=== PATIENT | male | born 1960 | race Caucasian/White ===

== ENCOUNTER 2021-07-01 11:22 | Outpatient (REF) | payer OTHER, SELFPAY ==
[2021-07-01 12:24] LABS: MANUAL DIFF FLAG NO
[2021-07-01 12:34] LABS: Basophils Percent Auto 0.3 % (0-2); Eosinophils Percent Auto 0.5 % (0-4); Hematocrit 42.5 % (42-52); Hemoglobin 14.4 g/dl (14.0-18.0); Imm Gran Abs Auto 0.03 X10*3/uL (0.00-0.03); Imm Gran Pct Auto 0.4 % (0.0-0.4); Lymphocytes Absolute Auto 1.3 X10*3/uL (1.2-4.9); Lymphocytes Percent Auto 17.2 % (20-40); Mean Corpuscular HGB Conc 33.9 g/dl (31.0-36.0); Mean Corpuscular Hemoglobin 29.6 pg (27.0-33.0); Mean Corpuscular Volume 87.3 fL (80-98); Mean Platelet Volume 10.6 fL (9.4-12.4); Monocytes Absolute Auto 0.5 X10*3/uL (0.1-1.2); Monocytes Percent Auto 6.5 % (2-11); Neutrophils Absolute Auto 5.6 X10*3/uL (2.0-8.3); Neutrophils Percent Auto 75.1 % (45-73); Platelet Count 236 X10*3/uL (160-400); Red Blood Count 4.87 X10*6/uL (4.60-5.80); Red Cell Distribution Width 12.8 % (11.0-16.0); White Blood Count 7.4 X10*3/uL (4.8-10.8)
[2021-07-01 12:44] LABS: Alanine Aminotransferase 12 U/L (0-40); Albumin Level 4.3 g/dL (3.5-5.0); Alkaline Phosphatase 74 U/L (39-117); Anion Gap 13 (12-20); Aspartate Amino Transferase 13 U/L (5-37); Bilirubin Total 0.7 mg/dL (0.0-1.0); Blood Urea Nitrogen 17 mg/dL (9-16); Calcium 9.6 mg/dL (8.4-10.2); Carbon Dioxide 25 mmol/L (22-29); Chloride 105 mmol/L (96-108); Cholesterol 179 mg/dL; Estimated Glomerular Filt Rate > 60; Glucose Random 105 mg/dL (60-115); HDL Cholesterol 59 mg/dL; LDL Cholesterol Calculated 110 mg/dl; Sodium 138 mmol/L (135-145); Total Protein 6.7 g/dL (6.5-8.0); Triglycerides 53 mg/dL
[2021-07-01 13:07] LABS: Free T4 (Free Thyroxine) 1.13 ng/dL (0.71-1.85); Thyroid Stimulating Hormone 1.35 uIU/mL (0.32-4.0)
[2021-07-01 13:16] LABS: Folate > 20.0 ng/mL (> or = 4.0); Vitamin B12 880 pg/mL (200-900)
== END 2021-07-01 11:23 | disposition home or self-care (01) ==
LOC: HO.LAB 11:22
PROVIDERS: PCP Internal Medicine; Visit Provider Internal Medicine
DX: E78.00 Pure hypercholesterolemia, unspecified (principal); I10 Essential (primary) hypertension
CPT/HCPCS: 36415; 80053; 80061; 82607; 82746; 84439; 84443; 85025

== ENCOUNTER 2021-07-07 12:17 | Outpatient (REF) | payer OTHER, SELFPAY ==
[2021-07-07 14:19] LABS: Prostate Specific Antigen Scr 0.52 ng/mL (<0.05-4.0)
== END 2021-07-07 12:18 | disposition home or self-care (01) ==
LOC: HO.LAB 12:17
PROVIDERS: PCP Internal Medicine; Visit Provider Internal Medicine
DX: I10 Essential (primary) hypertension (principal)
CPT/HCPCS: 36415; 84153

== ENCOUNTER 2022-07-08 10:59 | Outpatient (REF) | payer OTHER, SELFPAY ==
[2022-07-08 11:13] LABS: MANUAL DIFF FLAG NO
[2022-07-08 11:55] LABS: Appearance Urine Clear; Color Urine Yellow; Glucose Urine UA Negative (Negative); Leukocyte Esterase Urine Negative (Negative); Nitrite Urine Negative (Negative); PH 5.5 (5.0-9.0); Specific Gravity - Urine 1.025 (1.005-1.025); Urine Blood Negative (Negative); Urine Ketones Negative (Negative); Urine Protein Negative (Neg-Trace)
[2022-07-08 11:58] LABS: Basophils Percent Auto 0.4 % (0-2); Eosinophils Absolute Auto 0.1 X10*3/uL (0.0-0.4); Eosinophils Percent Auto 1.2 % (0-4); Hematocrit 41.9 % (42.0-52.0); Hemoglobin 13.8 g/dl (14.0-18.0); Imm Gran Abs Auto 0.03 X10*3/uL (0.00-0.03); Imm Gran Pct Auto 0.4 % (0.0-0.4); Lymphocytes Absolute Auto 1.6 X10*3/uL (1.2-4.9); Lymphocytes Percent Auto 21.3 % (20-40); Mean Corpuscular HGB Conc 32.9 g/dl (31.0-36.0); Mean Corpuscular Hemoglobin 29.1 pg (27.0-33.0); Mean Corpuscular Volume 88.4 fL (80.0-98.0); Mean Platelet Volume 10.7 fL (9.4-12.4); Monocytes Absolute Auto 0.6 X10*3/uL (0.1-1.2); Monocytes Percent Auto 7.4 % (2-11); Neutrophils Absolute Auto 5.3 x10*3/uL (2.0-8.3); Neutrophils Percent Auto 69.3 % (45-73); Platelet Count 229 X10*3/uL (160-400); Red Blood Count 4.74 X10*6/uL (4.60-5.80); Red Cell Distribution Width 13.2 % (11.0-16.0); White Blood Count 7.6 X10*3/uL (4.8-10.8)
[2022-07-08 11:59] LABS: Bacteria Urine None Seen (None Seen); Hyaline Casts Urine 0-2 /LPF (0-2); RBC Urine 0-2 /HPF (0-2); Squamous Epithelial Cell Urine 0-2 /HPF (0-2); WBC Urine 0-5 /HPF (0-5)
[2022-07-08 12:03] LABS: Estimated Average Glucose 105 mg/dL; Hemoglobin A1c % 5.3 %
[2022-07-08 12:25] LABS: Alanine Aminotransferase 13 U/L (0-40); Alkaline Phosphatase 68 U/L (39-117); Anion Gap 13 (12-20); Aspartate Amino Transferase 12 U/L (5-37); Bilirubin Total 1.2 mg/dL (0.0-1.0); Blood Urea Nitrogen 19 mg/dL (9-16); Calcium 9.1 mg/dL (8.4-10.2); Carbon Dioxide 26 mmol/L (22-29); Chloride 106 mmol/L (96-108); Cholesterol 177 mg/dL; Estimated Glomerular Filt Rate > 60; Glucose Random 94 mg/dL (60-115); HDL Cholesterol 56 mg/dL; LDL Cholesterol Calculated 108 mg/dl; Potassium 4.6 mmol/L (3.3-5.1); Sodium 140 mmol/L (135-145); Total Protein 6.5 g/dL (6.5-8.0); Triglycerides 66 mg/dL
[2022-07-08 13:06] LABS: Folate > 20.0 ng/mL (> or = 4.0); Free T4 (Free Thyroxine) 1.09 ng/dL (0.71-1.85); Prostate Specific Antigen Scr 0.46 ng/mL (<0.05-4.0); Vitamin B12 723 pg/mL (200-900)
[2022-07-08 13:42] LABS: Thyroid Stimulating Hormone 1.35 uIU/mL (0.32-4.0)
== END 2022-07-08 11:00 | disposition home or self-care (01) ==
LOC: HO.LAB 10:59
PROVIDERS: PCP Internal Medicine; Visit Provider Internal Medicine
DX: E78.00 Pure hypercholesterolemia, unspecified (principal); I10 Essential (primary) hypertension; R73.02 Impaired glucose tolerance (oral)
CPT/HCPCS: 36415; 80053; 80061; 81001; 82607; 82746; 83036; 84153; 84439; 84443; 85025

== ENCOUNTER 2023-02-24 11:53 | Outpatient (REF) | payer OTHER, SELFPAY ==
[2023-02-24 12:08] LABS: MANUAL DIFF FLAG NO
[2023-02-24 12:33] LABS: Basophils Percent Auto 0.5 % (0-2); Eosinophils Absolute Auto 0.2 X10*3/uL (0.0-0.4); Eosinophils Percent Auto 2.9 % (0-4); Hemoglobin 13.8 g/dl (14.0-18.0); Imm Gran Abs Auto 0.02 X10*3/uL (0.00-0.03); Imm Gran Pct Auto 0.3 % (0.0-0.4); Lymphocytes Absolute Auto 1.6 X10*3/uL (1.2-4.9); Lymphocytes Percent Auto 21.9 % (20-40); Mean Corpuscular HGB Conc 32.9 g/dl (31.0-36.0); Mean Corpuscular Hemoglobin 29.2 pg (27.0-33.0); Mean Corpuscular Volume 88.8 fL (80.0-98.0); Mean Platelet Volume 10.8 fL (9.4-12.4); Monocytes Absolute Auto 0.6 X10*3/uL (0.1-1.2); Monocytes Percent Auto 7.9 % (2-11); Neutrophils Absolute Auto 4.9 x10*3/uL (2.0-8.3); Neutrophils Percent Auto 66.5 % (45-73); Platelet Count 219 X10*3/uL (160-400); Red Blood Count 4.73 X10*6/uL (4.60-5.80); Red Cell Distribution Width 13.2 % (11.0-16.0); White Blood Count 7.3 X10*3/uL (4.8-10.8)
[2023-02-24 13:28] LABS: Estimated Average Glucose 105 mg/dL; Hemoglobin A1c % 5.3 %
[2023-02-24 14:00] LABS: Alanine Aminotransferase 8 U/L (0-40); Alkaline Phosphatase 77 U/L (39-117); Anion Gap 9 (12-20); Aspartate Amino Transferase 11 U/L (5-37); Bilirubin Total 1.2 mg/dL (0.0-1.0); Blood Urea Nitrogen 17 mg/dL (9-16); Calcium 9.2 mg/dL (8.4-10.2); Carbon Dioxide 29 mmol/L (22-29); Chloride 108 mmol/L (96-108); Cholesterol 161 mg/dL; Estimated Glomerular Filt Rate > 60; Glucose Fasting 97 mg/dL (60-99); HDL Cholesterol 55 mg/dL; LDL Cholesterol Calculated 92 mg/dl; Potassium 4.4 mmol/L (3.3-5.1); Prostate Specific Antigen 0.55 ng/mL (<0.05-4.0); Sodium 142 mmol/L (135-145); Total Protein 6.3 g/dL (6.5-8.0); Triglycerides 71 mg/dL; Vitamin B12 793 pg/mL (200-900); Vitamin D 25-OH Total 4.3 ng/mL (>30)
== END 2023-02-24 11:54 | disposition home or self-care (01) ==
LOC: HO.LAB 11:53
PROVIDERS: PCP Internal Medicine; Visit Provider Nurse Practitioner Family
DX: Z00.00 Encounter for general adult medical examination without abnormal findings (principal); E66.9 Obesity, unspecified; R73.02 Impaired glucose tolerance (oral); I10 Essential (primary) hypertension; Z13.220 Encounter for screening for lipoid disorders; Z12.5 Encounter for screening for malignant neoplasm of prostate
CPT/HCPCS: 36415; 80053; 80061; 82306; 82607; 82746; 83036; 84153; 84443; 85025

== ENCOUNTER 2023-08-31 10:29 | Outpatient (AMB) | payer OTHER, SELFPAY ==
[2023-08-31 10:32] VITALS: BP 122/82; PULSE 75; O2SAT 96; BMI 36.2
--- NOTE | 2023-08-31 10:32 | A.OFFPC_ITS ---
Vital Signs 08/31/23 10:32 Height 6 ft Weight 267 lb BMI 36.2 BP 122/82 Blood Pressure Location Lt brachial Position Sitting Pulse 75 Pulse Source Pulse Oximeter Pulse Oximetry (%) 96 Oxygen Delivery Method Room Air Intake Visit Reasons: 6 month f/u Allergies No Known Allergies [No Known Allergies*] Allergy (Verified 08/31/23 10:33) Medication List - Last Reconciled 08/31/23 by Sunita Barker MD aspirin (Adult Aspirin Regimen) 81 mg PO DAILY cholecalciferol (vitamin D3) 50 mcg PO DAILY cyanocobalamin (vitamin B-12) 1,000 mcg PO DAILY enalapril maleate 10 mg PO DAILY folic acid 0.4 mg PO DAILY loperamide (Anti-Diarrheal (loperamide)) 2 mg PO Q6H PRN Tobacco use date assessed: 02/24/23 Fall risk assessment: No Falls in past year Last assessed Fall Risk: 08/31/23 Dental Screening Dental Screen Date: 08/31/23 Did you have a dental visit in the last 12 months?: Yes Did you have a dental problem in the last 6 months where you did not have access to dental care?: No Was dental information given to patient?: Patient has dentist HPI 6 month f/u HPI Details 62-year-old obese male with a history of impaired glucose tolerance hypertension peripheral vascular disease last seen in June 2022 having left shoulder pain. Patient's colonoscopy is up-to-date patient did have a physical exam done by the nurse practitioner in February 2023 [facility]LY [facility], [facility] Medical History (Updated 08/31/23 @ 11:11 by Sunita Barker MD) Screening for hyperlipidemia Screening for prostate cancer Cervical spinal stenosis Ganglioneuroma Superficial thrombophlebitis Peripheral vascular disease Osteoarthritis cervical spine Hypertension Obesity (BMI 30-39.9) Surgical History (Updated 02/24/23 @ 13:34 by CIARA Sears) History of colonoscopy Varicose veins of both lower extremities History of tonsillectomy Family History (Updated 08/31/23 @ 10:33 by Aimee Feliz CMA) Father Prostate cancer Basal cell carcinoma Social History Housing: House Alcohol intake: current Alcohol intake frequency: a few times a month Patient Tobacco Use Status: Never used Tobacco e-Cigarette/Vaping Use: Never Used Second Hand Smoke Exposure: No Current occupational status: employed Cognitive needs: No Hearing needs: No Vision needs: No Questionnaire PHQ-9 Over the last 2 weeks, how often have you been bothered by any of the following problems? 1. Little interest or pleasure in doing things: not at all 2. Feeling down, depressed, or hopeless: not at all 3. Trouble falling or staying asleep, or sleeping too much: not at all 4. Feeling tired or having little energy: not at all 5. Poor appetite or overeating: not at all 6. Feeling bad about yourself - or that you are a failure or have let yourself or your family down: not at all 7. Trouble concentrating on things, such as reading the newspaper or watching television: not at all 8. Moving or speaking so slowly that other people could have noticed. Or the opposite - being so fidgety or restless that you have been moving around a lot more than usual: not at all 9. Thoughts that you would be better off or of hurting yourself in some way: not at all Total score: 0 Depression Screening Interpretation: Negative Depression Screening Done: Yes 53911 - PHQ-9 Billing: Yes Source: Developed by Drs. Christos Lee, Magno Jin and colleagues, with an educational johanne from [employer]. Thrive Questionnaire Date Thrive assessed: 02/24/23 AUDIT C Alcohol Use Questionnaire (AUDIT-C) 1. How often do you have a drink containing alcohol?: Monthly or less 2. How many drinks containing alcohol do you have on a typical day when you are drinking?: 1 or 2 3. How often do you have six or more drinks on one occasion?: Never Total Score: 1 Score Reviewed/Action Taken: No MARYAM-7 AMB Questionnaire MARYAM-7 Date MARYAM - 7 assessed: 02/24/23 Source: Developed by Drs. Christos Lee, Magno Jin and colleagues, with an educational johanne from [employer]. Physical exam (Primary Care) Vital Signs: Last Vital Signs Pulse 75 08/31/23 10:32 BP 122/82 08/31/23 10:32 Pulse Ox 96 08/31/23 10:32 Oxygen Delivery Method Room Air 08/31/23 10:32 BMI result Body Mass Index 36.2 Tobacco/Smoking Status: Tobacco use Status Tobacco use date assessed 02/24/23 08/31/23 10:39 Patient Tobacco Use Status Never used Tobacco 08/31/23 10:39 e-Cigarette/Vaping Use Never Used 08/31/23 10:39 PHQ-9: PHQ-9 Score PHQ-9: Total score 0 08/31/23 10:39 Depression Screening Interpretation: Negative Thrive Assessment: Date of Thrive Assessment Date Thrive assessed 02/24/23 08/31/23 10:39 Const General: alert; No acute distress Eyes Conjunctivae: conjunctivae normal Resp Auscultation: clear to auscultation bilaterally Cardio Rate: regular rate Rhythm: regular rhythm GI Inspection: Yes normal to inspection Extrem Other: RLE swelling 1+ General: Yes normal to inspection and No edema Assessment and Plan Assessment & Plan (1) Mild anemia: Code(s): D64.9 - Anemia, unspecified Plan: Stable continue to monitor (2) Obesity (BMI 30-39.9): Code(s): E66.9 - Obesity, unspecified Plan: Diet and exercise (3) Hypertension: Code(s): I10 - Essential (primary) hypertension Qualifiers: Hypertension type: essential hypertension Qualified Code(s): I10 - Essential (primary) hypertension Plan: Continue with blood pressure medication. Decrease salt intake and exercise patient takes enalapril 10 mg once a day (4) Impaired glucose tolerance: Code(s): R73.02 - Impaired glucose tolerance (oral) Plan: Decrease the amount of carbohydrate intake, pasta, bread, rice and potatoes are all sugar and that is aside from all the sweet stuff, remember that fruits are good but they are Sweet also. Orders: Orders Reticulocyte Count Today D64.9 - Anemia, unspecified Prostate Specific Antigen Scr 6 Months I10 - Essential (primary) hypertension Thyroid Stimulating Hormone 6 Months I10 - Essential (primary) hypertension Free T4 (Free Thyroxine) 6 Months I10 - Essential (primary) hypertension Lipid Panel 6 Months E78.00 - Pure hypercholesterolemia, unspecified, R73.02 - Impaired glucose tolerance (oral) Complete Blood Count Auto Diff Today D64.9 - Anemia, unspecified Comprehensive Met. Panel Today D64.9 - Anemia, unspecified Ferritin Today D64.9 - Anemia, unspecified IRON PROFILE Today D64.9 - Anemia, unspecified Vitamin D 25-OH Total Today R79.89 - Other specified abnormal findings of blood chemistry Complete Blood Count Auto Diff 6 Months I10 - Essential (primary) hypertension Vitamin B12 and Folate 6 Months I10 - Essential (primary) hypertension Hemoglobin A1c 6 Months R73.02 - Impaired glucose tolerance (oral) Coding Level of Care Code Est Pt Level 4 (94291) Diagnoses Mild anemia D64.9 Obesity (BMI 30-39.9) E66.9 Essential hypertension I10 Hypertension type: essential hypertension Impaired glucose tolerance R73.02
== END 2023-08-31 11:34 | disposition home or self-care (01) ==
PROVIDERS: Visit Provider Internal Medicine
DX: I10 Essential (primary) hypertension (principal); E66.9 Obesity, unspecified; Z68.36 Body mass index [BMI] 36.0-36.9, adult; K58.0 Irritable bowel syndrome with diarrhea
CPT/HCPCS: 99214

== ENCOUNTER 2023-08-31 11:43 | Outpatient (REF) | payer OTHER, SELFPAY ==
[2023-08-31 12:02] LABS: MANUAL DIFF FLAG NO
[2023-08-31 12:12] LABS: Basophils Percent Auto 0.5 % (0-2); Eosinophils Absolute Auto 0.1 X10*3/uL (0.0-0.4); Eosinophils Percent Auto 1.3 % (0-4); Hematocrit 41.7 % (42.0-52.0); Hemoglobin 13.9 g/dl (14.0-18.0); Imm Gran Abs Auto 0.03 X10*3/uL (0.00-0.03); Imm Gran Pct Auto 0.4 % (0.0-0.4); Immature Retic Fraction 10.2 % (2.3-13.4); Lymphocytes Absolute Auto 1.6 X10*3/uL (1.2-4.9); Lymphocytes Percent Auto 19.1 % (20-40); Mean Corpuscular HGB Conc 33.3 g/dl (31.0-36.0); Mean Corpuscular Hemoglobin 30.3 pg (27.0-33.0); Mean Platelet Volume 10.4 fL (9.4-12.4); Monocytes Absolute Auto 0.6 X10*3/uL (0.1-1.2); Monocytes Percent Auto 7.7 % (2-11); Neutrophils Absolute Auto 5.9 x10*3/uL (2.0-8.3); Platelet Count 240 X10*3/uL (160-400); Red Blood Count 4.58 X10*6/uL (4.60-5.80); Red Cell Distribution Width 13.2 % (11.0-16.0); Retic HGB Equivalent 34.7 pg (30.0-35.0); Reticulocyte Percent 1.3 % (0.5-1.8); White Blood Count 8.3 X10*3/uL (4.8-10.8)
[2023-08-31 12:52] LABS: Alanine Aminotransferase 10 U/L (0-40); Albumin Level 3.9 g/dL (3.5-5.0); Alkaline Phosphatase 66 U/L (39-117); Anion Gap 10 (12-20); Aspartate Amino Transferase 14 U/L (5-37); Bilirubin Total 0.5 mg/dL (0.0-1.0); Blood Urea Nitrogen 17 mg/dL (9-16); Calcium 8.6 mg/dL (8.4-10.2); Carbon Dioxide 29 mmol/L (22-29); Chloride 111 mmol/L (96-108); Estimated Glomerular Filt Rate > 60; Glucose Random 107 mg/dL (60-115); Iron 66 mcg/dL (45-160); Percent Iron Saturation 28 % (15-50); Potassium 4.7 mmol/L (3.3-5.1); Sodium 145 mmol/L (135-145); Total Iron Binding Capacity 234 mcg/dL (228-428); Total Protein 6.7 g/dL (6.5-8.0); Unsaturated Iron Binding 168 ug/dL
[2023-08-31 12:58] LABS: Ferritin 472 ng/mL (20-250); Vitamin D 25-OH Total 28.5 ng/mL (>30)
== END 2023-08-31 11:44 | disposition home or self-care (01) ==
LOC: HO.LAB 11:43
PROVIDERS: PCP Internal Medicine; Visit Provider Internal Medicine
DX: D64.9 Anemia, unspecified (principal); E55.9 Vitamin D deficiency, unspecified
CPT/HCPCS: 36415; 80053; 82306; 82728; 83540; 85025; 85045

== ENCOUNTER 2023-12-06 11:59 | Outpatient (AMB) | payer MEDICARE, SELFPAY ==
--- NOTE | 2023-12-06 12:52 | MHC.OFFWIV ---
Intake Vital Signs 12/06/23 12:54 Height 6 ft Weight 264 lb BMI 35.8 BP 140/90 H Blood Pressure Location Lt brachial Position Sitting Pulse 79 Pulse Source Pulse Oximeter Temp 97.6 F Temp Source Temporal Artery Scan Pulse Oximetry (%) 98 Oxygen Delivery Method Room Air Oxygen Flow Rate 97.6 Intake Visit Reasons: EST/left ear blocked(lobby) Intake Note: pt is here today for lft ear blocked started 2 weeks ago Patient Tobacco Use Status: Never used Tobacco Allergies No Known Allergies [No Known Allergies*] Allergy (Verified 12/06/23 12:57) Do you need a note to return to daycare/school/sports/work: No HPI HPI Comments History of Present Illness Details presents to walkin today with complaints of left blockage, [place] Reports 2 weeks ago he was seen at urgent care after having qtip lodged in the ear they were able to remove some of the cotton but told him a small amount remained that would eventually come out with the wax he reports they used multiple tools, scraped his ear drum several times in the process of trying to remove the cotton since then he has been suffering with muffled hearing and ringing in the left ear. he has been using debrox but still feels like he is not able to hear out of the left ear and has ringing Denies any discharge from the ear, denies headaches, sore throat, dizziness, weakness, syncope [facility] Medical History (Updated 12/06/23 @ 13:52 by Brigitte Wolff APRN, [employer]) Screening for hyperlipidemia Screening for prostate cancer Cervical spinal stenosis Ganglioneuroma Superficial thrombophlebitis Peripheral vascular disease Osteoarthritis cervical spine Hypertension Obesity (BMI 30-39.9) Surgical History (Updated 02/24/23 @ 13:34 by CIARA Sears) History of colonoscopy Varicose veins of both lower extremities History of tonsillectomy Family History (Updated 08/31/23 @ 10:33 by Aimee Feliz CMA) Father Prostate cancer Basal cell carcinoma Social History Housing: House Alcohol intake: current Alcohol intake frequency: a few times a month Patient Tobacco Use Status: Never used Tobacco e-Cigarette/Vaping Use: Never Used Second Hand Smoke Exposure: No Current occupational status: employed Cognitive needs: No Hearing needs: No Vision needs: No Review of Systems Const All systems reviewed & are unremarkable except as noted in HPI and below Physical Exam Vital Signs: Last Vital Signs Temp 97.6 F 12/06/23 12:54 Pulse 79 12/06/23 12:54 BP 140/90 H 12/06/23 12:54 Pulse Ox 98 12/06/23 12:54 Oxygen Delivery Method Room Air 12/06/23 12:54 Oxygen Flow Rate 97.6 12/06/23 12:54 BMI result Body Mass Index 35.8 General: awake, alert, oriented. Answers questions appropriately. Fully engaged in examination. Skin: warm, dry, intact HEENT: Normocephalic. Hearing intact. Left TM unable to visualize, white foreign body impeding visualization. Right TM normal to visual inspection. Cardiac: External chest normal in appearance. Respiratory: No cough, audible wheezing or stridor. Abdomen: without gross distension. MS: No obvious swelling or deformities. Neurological: Oriented to person, place, time and situation. Thought process intact. Psychiatric: Appropriate mood and affect. Good judgment and insight. Assessment & Plan Assessment & Plan (1) Foreign body in left ear, sequela: Code(s): T16.2XXS - Foreign body in left ear, sequela Plan Foreign body left ear with tinnitus and muffled hearing: ear was flushed, no improvement in symptoms and foreign body remains workload sent to PCP requesting referral to ENT Return here for any new or worsening symptoms Coding Level of Care Code Est Pt Level 3 (35425) Diagnoses Foreign body in left ear, sequela T16.2XXS
[2023-12-06 12:54] VITALS: BP 140/90; PULSE 79; TEMP 36.4; O2SAT 98; BMI 35.8
== END 2023-12-06 14:36 | disposition home or self-care (01) ==
PROVIDERS: PCP Internal Medicine; Visit Provider Registered Nurse Emergency
DX: T16.2XXA Foreign body in left ear, initial encounter (principal)
CPT/HCPCS: 69209; 99213

== ENCOUNTER 2023-12-07 12:12 | Outpatient (AMB) | payer MEDICARE, SELFPAY ==
--- NOTE | 2023-12-07 12:27 | A.OFFPC_ITS ---
Vital Signs 12/07/23 12:28 Height 6 ft Weight 266 lb BMI 36.1 BP 130/76 Blood Pressure Location Lt brachial Position Sitting Pulse 74 Pulse Source Pulse Oximeter Pulse Oximetry (%) 96 Oxygen Delivery Method Room Air Intake Visit Reasons: Ringing in ears, blockage Bridge [employer] Inspector Required: No Allergies No Known Allergies [No Known Allergies*] Allergy (Verified 12/07/23 12:28) Tobacco use date assessed: 12/07/23 Fall risk assessment: No Falls in past year Last assessed Fall Risk: 12/07/23 Dental Screening Dental Screen Date: 12/07/23 HPI Ringing in ears, blockage HPI Details 63-year-old male had Q-tip lodged in the ear prompting for consultation. Patient has gone to the Urgent Center and had it flushed but was not complete. [facility] Medical History (Updated 12/07/23 @ 12:47 by Sunita Barker MD) Screening for hyperlipidemia Screening for prostate cancer Cervical spinal stenosis Ganglioneuroma Superficial thrombophlebitis Peripheral vascular disease Osteoarthritis cervical spine Hypertension Obesity (BMI 30-39.9) Surgical History (Updated 02/24/23 @ 13:34 by CIARA Sears) History of colonoscopy Varicose veins of both lower extremities History of tonsillectomy Family History (Updated 08/31/23 @ 10:33 by Aimee Feliz CMA) Father Prostate cancer Basal cell carcinoma Social History Housing: House Alcohol intake: current Alcohol intake frequency: a few times a month Patient Tobacco Use Status: Never used Tobacco e-Cigarette/Vaping Use: Never Used Second Hand Smoke Exposure: No Current occupational status: employed Cognitive needs: No Hearing needs: No Vision needs: No Questionnaire PHQ-9 Over the last 2 weeks, how often have you been bothered by any of the following problems? 1. Little interest or pleasure in doing things: not at all 2. Feeling down, depressed, or hopeless: not at all 3. Trouble falling or staying asleep, or sleeping too much: not at all 4. Feeling tired or having little energy: not at all 5. Poor appetite or overeating: not at all 6. Feeling bad about yourself - or that you are a failure or have let yourself or your family down: not at all 7. Trouble concentrating on things, such as reading the newspaper or watching television: not at all 8. Moving or speaking so slowly that other people could have noticed. Or the opposite - being so fidgety or restless that you have been moving around a lot more than usual: not at all 9. Thoughts that you would be better off or of hurting yourself in some way: not at all Total score: 0 Depression Screening Interpretation: Negative Depression Screening Done: Yes 57053 - PHQ-9 Billing: Yes Source: Developed by Drs. Christos Lee, Magno Jin and colleagues, with an educational johanne from [employer]. Thrive Questionnaire Date Thrive assessed: 12/07/23 I am a: Patient What is your living situation today?: I have a steady place to live Within the past 12 months, did the food you bought not last and you didn't have the money to get more?: Never true Within the past 12 months, did you worry whether your food would run out before you got money to buy more?: Never true Do you have trouble paying for medicines?: No Do you have trouble getting transportation to medical appointments?: No Do you have trouble paying your heating and electricity bill?: No Do you have trouble taking care of your child, family member or friend?: No Do you have trouble with day-to-day activities such as bathing, preparing meals, shopping, managing finances, etc.?: No Are you currently unemployed and looking for a job?: No Are you interested in more education?: No Please select the resources that you would like help with: None THRIVE Score: 0 AUDIT C Alcohol Use Questionnaire (AUDIT-C) 1. How often do you have a drink containing alcohol?: Monthly or less 2. How many drinks containing alcohol do you have on a typical day when you are drinking?: 1 or 2 3. How often do you have six or more drinks on one occasion?: Never Total Score: 1 Score Reviewed/Action Taken: No MARYAM-7 AMB Questionnaire MARYAM-7 Date MARYAM - 7 assessed: 12/07/23 Source: Developed by Drs. Christos Lee, Magno Jin and colleagues, with an educational johanne from [employer] Physical exam (Primary Care) Vital Signs: Oxygen Delivery Method Room Air 12/07/23 12:28 Tobacco/Smoking Status: Tobacco use Status Tobacco use date assessed 02/24/23 12/07/23 12:27 Patient Tobacco Use Status Never used Tobacco 12/07/23 12:27 e-Cigarette/Vaping Use Never Used 12/07/23 12:27 Depression Screening Interpretation: Negative Thrive Assessment: Date of Thrive Assessment Date Thrive assessed 02/24/23 12/07/23 12:27 Const Other: Q tip= cotton tip L ear impacted Assessment and Plan Assessment & Plan (1) Foreign body in left ear, sequela: Code(s): T16.2XXS - Foreign body in left ear, sequela Plan: irrigation done TM intact L (2) Tinnitus of left ear: Code(s): H93.12 - Tinnitus, left ear Plan: if this persist will need hearing test Coding Level of Care Code Est Pt Level 3 (82393) Diagnoses Foreign body in left ear, sequela T16.2XXS Tinnitus of left ear H93.12
[2023-12-07 12:28] VITALS: BP 130/76; PULSE 74; O2SAT 96; BMI 36.1
== END 2023-12-07 12:53 | disposition home or self-care (01) ==
PROVIDERS: PCP Internal Medicine; Visit Provider Internal Medicine
DX: T16.2XXD Foreign body in left ear, subsequent encounter (principal); H93.12 Tinnitus, left ear
CPT/HCPCS: 69209; 99213

== ENCOUNTER 2024-02-29 10:28 | Outpatient (AMB) | payer MEDICARE, SELFPAY ==
[2024-02-29 10:30] VITALS: BP 130/80; PULSE 80; BMI 34.7
--- NOTE | 2024-02-29 10:30 | MHC.PC.OV ---
Vital Signs 02/29/24 10:30 Height 6 ft Weight 256 lb BMI 34.7 BP 130/80 Blood Pressure Location Lt brachial Position Sitting Pulse 80 Pulse Source Pulse Oximeter Oxygen Delivery Method Room Air Intake Visit Reasons: Hypertension Allergies No Known Allergies [No Known Allergies*] Allergy (Verified 02/29/24 10:30) Tobacco use date assessed: 12/07/23 Fall risk assessment: No Falls in past year Last assessed Fall Risk: 02/29/24 Dental Screening Dental Screen Date: 02/29/24 Did you have a dental visit in the last 12 months?: Yes Did you have a dental problem in the last 6 months where you did not have access to dental care?: No Was dental information given to patient?: Patient has dentist HPI Hypertension HPI Details 63-year-old obese male with a history of hypertension impaired glucose tolerance mild anemia coming in for follow-up. Last seen in November 2023 for a foreign body in left ear. seen Dr. Agarwal and rx steroid nasal spray, neomycin and methyprednisole patient wants explanation of the [facility] Medical History (Updated 12/07/23 @ 12:47 by Sunita Barker MD) Screening for hyperlipidemia Screening for prostate cancer Cervical spinal stenosis Ganglioneuroma Superficial thrombophlebitis Peripheral vascular disease Osteoarthritis cervical spine Hypertension Obesity (BMI 30-39.9) Surgical History (Updated 02/24/23 @ 13:34 by CIARA Sears) History of colonoscopy Varicose veins of both lower extremities History of tonsillectomy Family History (Updated 08/31/23 @ 10:33 by Aimee Feliz CMA) Father Prostate cancer Basal cell carcinoma Social History Housing: House Alcohol intake: current Alcohol intake frequency: a few times a month Patient Tobacco Use Status: Never used Tobacco e-Cigarette/Vaping Use: Never Used Second Hand Smoke Exposure: No Current occupational status: employed Cognitive needs: No Hearing needs: No Vision needs: No Questionnaire PHQ-9 Over the last 2 weeks, how often have you been bothered by any of the following problems? 1. Little interest or pleasure in doing things: not at all 2. Feeling down, depressed, or hopeless: not at all 3. Trouble falling or staying asleep, or sleeping too much: not at all 4. Feeling tired or having little energy: not at all 5. Poor appetite or overeating: not at all 6. Feeling bad about yourself - or that you are a failure or have let yourself or your family down: not at all 7. Trouble concentrating on things, such as reading the newspaper or watching television: not at all 8. Moving or speaking so slowly that other people could have noticed. Or the opposite - being so fidgety or restless that you have been moving around a lot more than usual: not at all 9. Thoughts that you would be better off or of hurting yourself in some way: not at all Total score: 0 Depression Screening Interpretation: Negative Depression Screening Done: Yes 21593 - PHQ-9 Billing: Yes Source: Developed by Drs. Christos Lee, Manjula Bartlett, Magno Barrera and colleagues, with an educational johanne from [employer]. Thrive Questionnaire Date Thrive assessed: 12/07/23 AUDIT C Alcohol Use Questionnaire (AUDIT-C) 1. How often do you have a drink containing alcohol?: Monthly or less 2. How many drinks containing alcohol do you have on a typical day when you are drinking?: 1 or 2 3. How often do you have six or more drinks on one occasion?: Never Total Score: 1 Score Reviewed/Action Taken: No MARYAM-7 AMB Questionnaire MARYAM-7 Date MARYAM - 7 assessed: 12/07/23 Source: Developed by Drs. Christos Lee, Manjula Bartlett, Magno Barrera and colleagues, with an educational johanne from [employer]. Physical exam (Primary Care) Vital Signs: Last Vital Signs Pulse 80 02/29/24 10:30 BP 130/80 02/29/24 10:30 Oxygen Delivery Method Room Air 02/29/24 10:30 BMI result Body Mass Index 34.7 Tobacco/Smoking Status: Tobacco use Status Tobacco use date assessed 12/07/23 02/29/24 10:31 Patient Tobacco Use Status Never used Tobacco 02/29/24 10:31 e-Cigarette/Vaping Use Never Used 02/29/24 10:31 PHQ-9: PHQ-9 Score PHQ-9: Total score 0 02/29/24 10:31 Depression Screening Interpretation: Negative Thrive Assessment: Date of Thrive Assessment Date Thrive assessed 12/07/23 02/29/24 10:31 Const General: alert; No acute distress Eyes Conjunctivae: conjunctivae normal Resp Auscultation: clear to auscultation bilaterally Cardio Rate: regular rate Rhythm: regular rhythm GI Inspection: Yes normal to inspection Extrem General: Yes normal to inspection and No edema Assessment and Plan Assessment & Plan (1) Obesity (BMI 30-39.9): Code(s): E66.9 - Obesity, unspecified Plan: Diet and exercise (2) Hypertension: Code(s): I10 - Essential (primary) hypertension Qualifiers: Hypertension type: essential hypertension Qualified Code(s): I10 - Essential (primary) hypertension Plan: Continue with blood pressure medication. Decrease salt intake and exercise on enalapril 10 mg once a day (3) Irritable bowel syndrome: Code(s): K58.9 - Irritable bowel syndrome without diarrhea Qualifiers: Irritable bowel syndrome type: with diarrhea Qualified Code(s): K58.0 - Irritable bowel syndrome with diarrhea Plan: Takes loperamide as needed (4) Impaired glucose tolerance: Code(s): R73.02 - Impaired glucose tolerance (oral) Plan: Decrease the amount of carbohydrate intake, pasta, bread, rice and potatoes are all sugar and that is aside from all the sweet stuff, remember that fruits are good but they are Sweet also. (5) Mild anemia: Code(s): D64.9 - Anemia, unspecified Plan: Mild and will continue to monitor (6) Tinnitus of left ear: Code(s): H93.12 - Tinnitus, left ear Plan: seen ENT and rx done. Had a long discussion with the patient with regards to each and every medication that was given by the ear nose , directions on how to use them and throat in the reason for doing them. Orders: Orders Ferritin Today D64.9 - Anemia, unspecified Reticulocyte Count Today D64.9 - Anemia, unspecified IRON PROFILE Today D64.9 - Anemia, unspecified Coding Level of Care Code Est Pt Level 4 (18364) Diagnoses Obesity (BMI 30-39.9) E66.9 Essential hypertension I10 Hypertension type: essential hypertension Irritable bowel syndrome with diarrhea K58.0 Irritable bowel syndrome type: with diarrhea Impaired glucose tolerance R73.02 Mild anemia D64.9 Tinnitus of left ear H93.12
== END 2024-02-29 11:37 | disposition home or self-care (01) ==
PROVIDERS: PCP Internal Medicine; Visit Provider Internal Medicine
DX: I10 Essential (primary) hypertension (principal); Z68.34 Body mass index [BMI] 34.0-34.9, adult; E66.9 Obesity, unspecified; K58.0 Irritable bowel syndrome with diarrhea; R73.02 Impaired glucose tolerance (oral); D64.9 Anemia, unspecified; H93.12 Tinnitus, left ear
CPT/HCPCS: 99214

== ENCOUNTER 2024-02-29 11:43 | Outpatient (REF) | payer MEDICARE, SELFPAY ==
[2024-02-29 12:14] LABS: Estimated Average Glucose 108 mg/dL; Hemoglobin A1c % 5.4 % (<6.0)
[2024-02-29 12:34] LABS: Basophils Percent Auto 0.4 % (0-2); Eosinophils Absolute Auto 0.1 X10*3/uL (0.0-0.4); Eosinophils Percent Auto 1.1 % (0-4); Hematocrit 41.6 % (42.0-52.0); Hemoglobin 14.1 g/dl (14.0-18.0); Imm Gran Abs Auto 0.04 X10*3/uL (0.00-0.03); Imm Gran Pct Auto 0.5 % (0.0-0.4); Immature Retic Fraction 12.6 % (2.3-13.4); Lymphocytes Absolute Auto 1.5 X10*3/uL (1.2-4.9); Lymphocytes Percent Auto 19.8 % (20-40); MANUAL DIFF FLAG SCAN; Mean Corpuscular HGB Conc 33.9 g/dl (31.0-36.0); Mean Corpuscular Hemoglobin 29.8 pg (27.0-33.0); Mean Corpuscular Volume 87.9 fL (80.0-98.0); Monocytes Absolute Auto 0.6 X10*3/uL (0.1-1.2); Monocytes Percent Auto 8.2 % (2-11); Neutrophils Absolute Auto 5.3 x10*3/uL (2.0-8.3); PLT CLUMP 1; Red Blood Count 4.73 X10*6/uL (4.60-5.80); Red Cell Distribution Width 13.4 % (11.0-16.0); Retic HGB Equivalent 33.1 pg (30.0-35.0); Reticulocyte Percent 1.5 % (0.5-1.8); Reticulocytes Absolute 0.071 X10*6/uL (0.026-0.095); SCAN SMEAR FLAG 1
[2024-02-29 12:49] LABS: Cholesterol 174 mg/dL (<200); HDL Cholesterol 58 mg/dL (>40); Iron 86 mcg/dL (45-160); LDL Cholesterol Calculated 98 mg/dL (<100); Percent Iron Saturation 35 % (15-50); Total Iron Binding Capacity 245 mcg/dL (228-428); Triglycerides 90 mg/dL (<150); Unsaturated Iron Binding 159 ug/dL
[2024-02-29 13:11] LABS: Ferritin 668 ng/mL (20-250); Free T4 (Free Thyroxine) 1.08 ng/dL (0.71-1.85); Thyroid Stimulating Hormone 1.75 uIU/mL (0.32-4.0)
[2024-02-29 13:17] LABS: Prostate Specific Antigen Scr 1.28 ng/mL (<0.05-4.0); Vitamin B12 719 pg/mL (200-900)
[2024-02-29 13:27] LABS: Mean Platelet Volume 11.8 fL (9.4-12.4)
[2024-02-29 13:28] LABS: Platelet Count 219 X10*3/uL (160-400); White Blood Count 7.6 X10*3/uL (4.8-10.8)
[2024-02-29 13:29] LABS: SLIDE REVIEW VERIFIED
== END 2024-02-29 11:44 | disposition home or self-care (01) ==
LOC: HO.LAB 11:43
PROVIDERS: PCP Internal Medicine; Visit Provider Internal Medicine
DX: I10 Essential (primary) hypertension (principal); R73.02 Impaired glucose tolerance (oral); D64.9 Anemia, unspecified; E78.00 Pure hypercholesterolemia, unspecified; Z12.5 Encounter for screening for malignant neoplasm of prostate
CPT/HCPCS: 36415; 80061; 82607; 82728; 82746; 83036; 83540; 84153; 84439; 84443; 85025; 85045

== ENCOUNTER → 2024-03-30 10:59 | Outpatient (BNV) | payer MEDICARE, SELFPAY | PROVIDERS: PCP Internal Medicine; Referring Provider Internal Medicine; Visit Provider Internal Medicine Medical Oncology | DX: R79.89 Other specified abnormal findings of blood chemistry (principal) | CPT/HCPCS: 99204 ==

== ENCOUNTER 2024-07-28 12:03 | Outpatient (AMB) | payer MEDICARE, SELFPAY ==
[2024-07-28 12:34] VITALS: BP 136/80; PULSE 81; O2SAT 96; BMI 33.1
--- NOTE | 2024-07-28 12:34 | A.OFFPC_ITS ---
Vital Signs 07/28/24 12:34 Height 6 ft Weight 244 lb BMI 33.1 BP 136/80 Blood Pressure Location Lt brachial Position Sitting Pulse 81 Pulse Source Pulse Oximeter Pulse Oximetry (%) 96 Oxygen Delivery Method Room Air Intake Visit Reasons: Annual Exam Intake Note: Pt stated that if Dr. Barker sends him for blood work he would like all the results mailed to his house. Air Conditioning Equipment Mechanic Required: No Accompanied by: Self / Same As Patient Allergies No Known Allergies [No Known Allergies*] Allergy (Verified 07/28/24 12:36) Medication List - Last Reconciled 07/28/24 by Sunita Barker MD cholecalciferol (vitamin D3) 50 mcg PO DAILY cyanocobalamin (vitamin B-12) 1,000 mcg PO DAILY enalapril maleate 10 mg PO DAILY fluticasone propionate 50 mcg/actuation (Allergy Relief (fluticasone)) 1 spray intranasal DAILY folic acid 0.4 mg PO DAILY loperamide (Anti-Diarrheal (loperamide)) 2 mg PO Q6H PRN Tobacco use date assessed: 12/07/23 Fall risk assessment: No Falls in past year Last assessed Fall Risk: 07/28/24 Dental Screening Dental Screen Date: 02/29/24 HPI Annual Exam HPI Details 63 year old obese male with HTN, IBS , I Gt, anemia last seen in February 28 coming in for physical exam patient's colonoscopy last done in February 2015. With the mild anemia patient has seen hematology oncology noted to have an elevated ferritin advised further studies with DNA and advised to eliminate iron. [facility] Medical History (Updated 07/28/24 @ 13:07 by Sunita Barker MD) Screening for hyperlipidemia Screening for prostate cancer Cervical spinal stenosis Ganglioneuroma Superficial thrombophlebitis Peripheral vascular disease Osteoarthritis cervical spine Hypertension Obesity (BMI 30-39.9) Surgical History (Updated 03/30/24 @ 13:08 by Miri Bender MD) History of colonoscopy Varicose veins of both lower extremities History of tonsillectomy Family History Father Prostate cancer Basal cell carcinoma Social History (Updated 07/28/24 @ 12:53 by Sunita Barker MD) Housing: House Alcohol intake: current Alcohol intake frequency: a few times a month Comment: 1-2 drinks a month Patient Tobacco Use Status: Never used Tobacco Tobacco use type: Cigarette e-Cigarette/Vaping Use: Never Used Second Hand Smoke Exposure: No service: No Current occupational status: employed Cognitive needs: No Hearing needs: No Vision needs: No Questionnaire PHQ-9 Over the last 2 weeks, how often have you been bothered by any of the following problems? 1. Little interest or pleasure in doing things: not at all 2. Feeling down, depressed, or hopeless: not at all 3. Trouble falling or staying asleep, or sleeping too much: not at all 4. Feeling tired or having little energy: not at all 5. Poor appetite or overeating: not at all 6. Feeling bad about yourself - or that you are a failure or have let yourself or your family down: not at all 7. Trouble concentrating on things, such as reading the newspaper or watching television: not at all 8. Moving or speaking so slowly that other people could have noticed. Or the opposite - being so fidgety or restless that you have been moving around a lot more than usual: not at all 9. Thoughts that you would be better off or of hurting yourself in some way: not at all Total score: 0 Source: Developed by Drs. Christos Lee, Manjula Bartlett, Magno Barrera and colleagues, with an educational johanne from [employer]. Thrive Questionnaire Date Thrive assessed: 12/07/23 I am a: Patient What is your living situation today?: I have a steady place to live Within the past 12 months, did the food you bought not last and you didn't have the money to get more?: Never true Within the past 12 months, did you worry whether your food would run out before you got money to buy more?: Never true Do you have trouble paying for medicines?: No Do you have trouble getting transportation to medical appointments?: No Do you have trouble paying your heating and electricity bill?: No Do you have trouble taking care of your child, family member or friend?: No Do you have trouble with day-to-day activities such as bathing, preparing meals, shopping, managing finances, etc.?: No Are you currently unemployed and looking for a job?: No Are you interested in more education?: No Please select the resources that you would like help with: None Currently or been in a relationship where the following occur: No concerns reported THRIVE Score: 0 AUDIT C Alcohol Use Questionnaire (AUDIT-C) 1. How often do you have a drink containing alcohol?: Monthly or less 2. How many drinks containing alcohol do you have on a typical day when you are drinking?: 1 or 2 3. How often do you have six or more drinks on one occasion?: Never Total Score: 1 MARYAM-7 AMB Questionnaire MARYAM-7 Date MARYAM - 7 assessed: 12/07/23 Feeling nervous, anxious, or on edge: 0 = Not at all Not being able to stop or control worryin = Not at all Worrying too much about different things: 0 = Not at all Trouble relaxin = Not at all Being so restless that it is hard to sit still: 0 = Not at all Becoming easily annoyed or irritable: 0 = Not at all Feeling afraid as if something awful might happen: 0 = Not at all Total MARYAM-7 score (0-4 normal; 5-9 mild; 10-14 moderate; 15-21 severe): 0 Source: Developed by Drs. Christos Lee, Manjula Bartlett, Magno Barrera and colleagues, with an educational johanne from [employer]. Review of Systems Const Denies poor appetite and Denies weakness Eyes Denies no additional complaints ENT Reports Normal hearing present, Denies dizziness, Denies nasal congestion, Denies tinnitus and Denies sore throat Card Denies chest pain, Denies syncope, Denies rapid heart rate and Denies dyspnea Resp Denies cough and Denies dyspnea GI Denies change in stool character, Reports constipation, Denies diarrhea, Denies nausea and Denies vomiting Denies dysuria and Denies urinary frequency Neuro Reports Normal hearing present, Denies confusion, Denies dizziness, Denies syncope and Denies weakness Psych Denies confusion Physical exam (Primary Care) Vital Signs: Last Vital Signs Pulse 81 07/28/24 12:34 BP 136/80 07/28/24 12:34 Pulse Ox 96 07/28/24 12:34 Oxygen Delivery Method Room Air 07/28/24 12:34 BMI result Body Mass Index 33.1 Tobacco/Smoking Status: Tobacco use Status Tobacco use date assessed 12/07/23 07/28/24 12:35 Patient Tobacco Use Status Never used Tobacco 07/28/24 12:53 Tobacco use type Cigarette 07/28/24 12:53 e-Cigarette/Vaping Use Never Used 07/28/24 12:53 PHQ-9: PHQ-9 Score PHQ-9: Total score 0 07/28/24 12:47 Thrive Assessment: Date of Thrive Assessment Date Thrive assessed 12/07/23 07/28/24 12:35 Currently or been in a relationship where the following occur: No concerns reported Const General: No confusion Orientation/consciousness: No confusion HENMT Head: Yes normocephalic Ears: external ears normal and TM's normal bilaterally Face and sinus: Yes normal facial exam Mouth: moist mucous membranes Throat: Yes tonsils normal Eyes Conjunctivae: conjunctivae normal Pupils: Equal, round and reactive pupils present and Pupil accommodation reflex normal Direct Ophthalmoscopy: normal light reflex Neck Neck: No lymphadenopathy Thyroid: Thyroid normal Chest Chest palpation & inspection: normal inspection of the chest Resp Other: decrease left lung breath sounds Effort & Inspection: normal respiratory effort and no audible wheezes Auscultation: clear to auscultation bilaterally, no crackles, no wheezes and diminished lung sounds Cardio Rate: regular rate Rhythm: regular rhythm Peripheral pulses: radial pulses present and dorsalis pedis present GI Other: guaiac negative prostate N Palpation (GI): no masses Auscultation: normal bowel sounds and normoactive bowel sounds Male General Exam: Yes normal external exam Skin General skin exam: no rashes or lesions noted Rashes: no rashes Neuro General: No confusion Cranial nerves: Yes Equal, round and reactive pupils present and Yes Normal hearing present Cognition (Neuro): normal cognition Gait exam (Neuro): Normal gait present Motor exam (neuro): 5/5 motor strength present throughout Deep tendon reflexes (DTR's): Right brachioradialis reflex intensity grade: 2+, Left brachioradialis reflex intensity grade: 2+, Right patellar reflex intensity grade: 2+ and Left patellar reflex intensity grade: 2+ Extrem General: No edema Coding Level of Care Code Est Pt Prev Care >65y(53783) Diagnoses Annual physical exam Z00.00 Essential hypertension I10 Hypertension type: essential hypertension Obesity (BMI 30-39.9) E66.9 Impaired glucose tolerance R73.02 Mild anemia D64.9 High serum ferritin R79.89 Decreased breath sounds at left lung base R06.89 Assessment & Plan Assessment & Plan (1) Annual physical exam: Code(s): Z00.00 - Encounter for general adult medical examination without abnormal findings Category: Medical Plan: Patient is advised to eat healthy, keep well hydrated, keep active and have adequate sleep. (2) Hypertension: Code(s): I10 - Essential (primary) hypertension Category: Medical Qualifiers: Hypertension type: essential hypertension Qualified Code(s): I10 - Essential (primary) hypertension Plan: Continue with blood pressure medication. Decrease salt intake and exercise on enalapril 10 mg once a day (3) Obesity (BMI 30-39.9): Code(s): E66.9 - Obesity, unspecified Category: Medical Plan: Diet and exercise noted weight loss (4) Impaired glucose tolerance: Code(s): R73.02 - Impaired glucose tolerance (oral) Category: Medical Plan: Decrease the amount of carbohydrate intake, pasta, bread, rice and potatoes are all sugar and that is aside from all the sweet stuff, remember that fruits are good but they are Sweet also. (5) Mild anemia: Code(s): D64.9 - Anemia, unspecified Category: Medical Plan: Patient has been referred to Hematology Oncology and workup pending (6) High serum ferritin: Code(s): R79.89 - Other specified abnormal findings of blood chemistry Category: Medical Plan: Referral to Hematology Oncology and workup is pending (7) Decreased breath sounds at left lung base: Code(s): R06.89 - Other abnormalities of breathing Category: Medical Plan: Will order for chest x-ray. Patient is not symptomatic Orders: Orders XR chest 2V Today R06.89 - Other abnormalities of breathing Ferritin 6 Months R79.89 - Other specified abnormal findings of blood chemistry Vitamin D 25-OH Total 6 Months R79.89 - Other specified abnormal findings of blood chemistry Free T4 (Free Thyroxine) 6 Months I10 - Essential (primary) hypertension UA CC w/rflx Micro + Cult 6 Months I10 - Essential (primary) hypertension, R30.0 - Dysuria Thyroid Stimulating Hormone 6 Months I10 - Essential (primary) hypertension Hemoglobin A1c 6 Months I10 - Essential (primary) hypertension Lipid Panel 6 Months E78.00 - Pure hypercholesterolemia, unspecified, I10 - Essential (primary) hypertension Prostate Specific Antigen Scr 6 Months I10 - Essential (primary) hypertension IRON PROFILE 6 Months R79.89 - Other specified abnormal findings of blood chemistry Complete Blood Count Auto Diff 6 Months R79.89 - Other specified abnormal findings of blood chemistry Vitamin B12 and Folate 6 Months R79.89 - Other specified abnormal findings of blood chemistry Comprehensive Met. Panel 6 Months I10 - Essential (primary) hypertension
== END 2024-07-28 13:16 | disposition home or self-care (01) ==
PROVIDERS: PCP Internal Medicine; Visit Provider Internal Medicine
DX: Z00.00 Encounter for general adult medical examination without abnormal findings (principal); E66.811 Obesity, class 1; Z68.33 Body mass index [BMI] 33.0-33.9, adult; I10 Essential (primary) hypertension; R73.02 Impaired glucose tolerance (oral); D64.9 Anemia, unspecified; R79.89 Other specified abnormal findings of blood chemistry; R06.89 Other abnormalities of breathing

== ENCOUNTER 2024-07-28 12:03 | Outpatient (REF) | payer MEDICARE, SELFPAY ==
--- NOTE | ~2024-07-28 | XR_ITS ---
EXAMINATION: XR CHEST CLINICAL INFORMATION: Difficulty breathing COMPARISON: None available. TECHNIQUE: 2 views of the chest were obtained. FINDINGS: Abnormal elevation of the left diaphragm. Gaseous distention of the stomach. Crowding of bronchovascular structures at the left base. No effusion or pneumothorax. Heart and mediastinum within normal limits. No pulmonary edema. Nonobstructive small and large bowel gas pattern. Degenerative spine disease. XR/XR chest 2V IMPRESSION: Abnormal elevation of the left diaphragm. Electronically signed by: Sukumar Martin MD 07/29/2024 09:19 AM EDT
== END 2024-07-28 12:04 | disposition home or self-care (01) ==
LOC: HO.XRAY 12:03
PROVIDERS: PCP Internal Medicine; Visit Provider Internal Medicine
DX: Z00.00 Encounter for general adult medical examination without abnormal findings (principal); I10 Essential (primary) hypertension; E66.9 Obesity, unspecified; Z68.33 Body mass index [BMI] 33.0-33.9, adult; R73.02 Impaired glucose tolerance (oral); D64.9 Anemia, unspecified; R79.89 Other specified abnormal findings of blood chemistry; R06.89 Other abnormalities of breathing
CPT/HCPCS: 71046; 96127; 99397

== ENCOUNTER 2024-09-13 14:47 | Outpatient (REF) | payer MEDICARE, SELFPAY ==
[2024-09-13 15:37] LABS: Blood Urea Nitrogen 17 mg/dL (9-16); Estimated Glomerular Filt Rate > 60
== END 2024-09-13 14:48 | disposition home or self-care (01) ==
LOC: HO.LAB 14:47
PROVIDERS: PCP Internal Medicine; Visit Provider Internal Medicine
DX: J98.6 Disorders of diaphragm (principal)
CPT/HCPCS: 36415; 82565; 84520

== ENCOUNTER 2024-09-14 09:48 | Outpatient (REF) | payer MEDICARE, SELFPAY ==
[2024-09-14] MEDS: iohexoL 350 MG/ML 75 ML INFUS..BTL 65 ML IV (10:16)
== END 2024-09-14 09:49 | disposition home or self-care (01) ==
LOC: HO.CT 09:48
PROVIDERS: PCP Internal Medicine; Visit Provider Internal Medicine
DX: J98.6 Disorders of diaphragm (principal)
CPT/HCPCS: 71260; Q9967

== ENCOUNTER → 2024-09-14 09:50 | Outpatient (BNV) | payer MEDICARE, SELFPAY | PROVIDERS: PCP Internal Medicine; Visit Provider Radiology Diagnostic Radiology | DX: J98.6 Disorders of diaphragm (principal) | CPT/HCPCS: 71260 ==

== ENCOUNTER 2025-01-24 12:24 | Outpatient (REF) | payer MEDICARE, SELFPAY ==
[2025-01-24 12:37] LABS: MANUAL DIFF FLAG NO
[2025-01-24 12:41] LABS: Basophils Percent Auto 0.5 % (0-2); Eosinophils Absolute Auto 0.1 X10*3/uL (0.0-0.4); Eosinophils Percent Auto 0.7 % (0-4); Hemoglobin 14.7 g/dl (14.0-18.0); Imm Gran Abs Auto 0.02 X10*3/uL (0.00-0.03); Imm Gran Pct Auto 0.2 % (0.0-0.4); Lymphocytes Absolute Auto 1.6 X10*3/uL (1.2-4.9); Lymphocytes Percent Auto 19.3 % (20-40); Mean Corpuscular HGB Conc 33.4 g/dl (31.0-36.0); Mean Corpuscular Hemoglobin 29.3 pg (27.0-33.0); Mean Corpuscular Volume 87.6 fL (80.0-98.0); Mean Platelet Volume 10.4 fL (9.4-12.4); Monocytes Absolute Auto 0.5 X10*3/uL (0.1-1.2); Monocytes Percent Auto 5.7 % (2-11); Neutrophils Absolute Auto 6.1 x10*3/uL (2.0-8.3); Neutrophils Percent Auto 73.6 % (45-73); Platelet Count 236 X10*3/uL (160-400); Red Blood Count 5.02 X10*6/uL (4.60-5.80); Red Cell Distribution Width 12.9 % (11.0-16.0); White Blood Count 8.3 X10*3/uL (4.8-10.8)
[2025-01-24 12:50] LABS: Estimated Average Glucose 105 mg/dL; Hemoglobin A1C 133.9376 umol/L; Hemoglobin A1c % 5.3 % (<6.0); Total Hemoglobin (HGBA1C) 3918.0246 umol/L
[2025-01-24 13:19] LABS: Alanine Aminotransferase 11 U/L (0-40); Albumin Level 4.2 g/dL (3.5-5.0); Alkaline Phosphatase 73 U/L (39-117); Anion Gap 13 (12-20); Aspartate Amino Transferase 15 U/L (5-37); Blood Urea Nitrogen 23 mg/dL (9-16); Calcium 9.7 mg/dL (8.4-10.2); Carbon Dioxide 26 mmol/L (22-29); Chloride 105 mmol/L (96-108); Cholesterol 177 mg/dL (<200); Estimated Glomerular Filt Rate > 60; Glucose Random 101 mg/dL (60-115); HDL Cholesterol 58 mg/dL (>40); Iron 85 mcg/dL (45-160); LDL Cholesterol Calculated 105 mg/dL (<100); Percent Iron Saturation 34 % (15-50); Potassium 4.8 mmol/L (3.3-5.1); Sodium 139 mmol/L (135-145); Total Iron Binding Capacity 252 mcg/dL (228-428); Triglycerides 71 mg/dL (<150); Unsaturated Iron Binding 167 ug/dL
[2025-01-24 13:38] LABS: Ferritin 583 ng/mL (20-250); Free T4 (Free Thyroxine) 1.15 ng/dL (0.71-1.85); Thyroid Stimulating Hormone 1.88 uIU/mL (0.32-4.0); Vitamin D 25-OH Total 37.3 ng/mL (>30)
[2025-01-24 13:45] LABS: Folate 12.9 ng/mL (> or = 4.0); Prostate Specific Antigen Scr 0.94 ng/mL (<0.05-4.0); Vitamin B12 848 pg/mL (200-900)
[2025-01-24 14:08] LABS: Appearance Urine Hazy; Color Urine DK YELLOW; Glucose Urine UA Negative (Negative); Leukocyte Esterase Urine Negative (Negative); Nitrite Urine Negative (Negative); Specific Gravity - Urine >= 1.030 (1.005-1.025); Urine Blood Negative (Negative); Urine Ketones Negative (Negative); Urine Protein Negative (Neg-Trace)
--- OUTSIDE RECORDS SUMMARY | 2025-01-24 14:57 | XMS_ITS | Encounter Summary ---
Author Organization [employer] Address [address] [place] [address] Care Team Providers Care Flight Readiness Technician Name Role Phone Unavailable Primary Care Provider Unavailabl e Encounter Details Date Type Department Care Team (Latest Contact Info) Description 12/13/2018 Abstract [facility] CONVERSIONS Dental, Provider, DDS Social History Tobacco Use Types Packs/Day Years Used Date Smoking Tobacco: Never Assessed Sex and Gender Information Value Date Recorded Sex Assigned at Male 12/06/2023 3:02 PM EST Legal Sex Male 3:02 PM EST Gender Identity Male 12/06/2023 3:02 PM EST Sexual Orientation Straight 12/06/2023 3: 02 PM EST documented as of this encounter Plan of Treatment Not on file documented as of this encounter Visit Diagnoses Not on filedocumented in this encounter
--- OUTSIDE RECORDS SUMMARY | 2025-01-24 14:57 | XMS_ITS | Encounter Summary ---
Author Organization [employer] Address [address] [facility] [address] [facility] [address] [place] [address] Care Team Providers Care Special Tax Auditor Name Role Phone Unavailable Primary Care Provider Unavailabl e Encounter Details Date Type Department Care Team (Latest Contact Info) Description 12/14/2019 Abstract [facility] CONVERSIONS Dental, Provider, DDS Social History Tobacco [...]
--- OUTSIDE RECORDS SUMMARY | 2025-01-24 14:57 | XMS_ITS | Clinical Summary ---
Author Organization [employer] Address [address] [facility] [facility] [address] [place] [address] Care Team Providers Care Sewer Line Repairer Name Role Phone Unavailable Primary Care Provider Unavailabl e Social History Tobacco Use Types Packs/Day Years Used Date Smoking Tobacco: Never Assessed Sex and Gender Information Value Date Recorded Sex Assigned at Male 12/06/2023 3:02 PM EST Legal Sex Male 3:02 PM EST Gender Identity Male 12/06/2023 3:02 PM EST Sexual Orientation Straight 12/06/2023 3: 02 PM EST Plan of Treatment Health Maintenance Due Date Last Done Comments CT Colonography 1958 Colonoscopy 1958 Colorectal Cancer Screening 1958 Depression Screening 1958 FIT DNA/Cologuard 1958 FIT 1958 FOBT 1958 Lipid Panel 1958 SDOH Screening 1958 Sigmoidoscopy 1958 Alcohol/Substance Use Screening 1970 Tobacco Screening 1970 Hepatitis C Screening 1976 DTaP/Tdap/Td Vaccines (1 - Tdap) 1977 Pneumococcal Vaccine: 50+ Ye ars (1 of 1 - PCV) 2008 Zoster Vaccines (1 of 2) 2008 COVID-19 Vaccine ( - 2023-2 5 season) 2024 Influenza Vaccine (#1) 2024 RSV Patients and Pa tients Aged 60 years or older (1 - 1-dose 75+ series) 2033 HIB Vaccines Aged Out No longer eligi ble based on patient's age to complete this topic HPV Vaccines Aged Out No longer eligi ble based on patient's age to complete this topic Hepatitis A Vaccines Aged Out No long er eligible based on patient's age to complete this topic Hepatitis B Vaccines Aged Out No long er eligible based on patient's age to complete this topic IPV Vaccines Aged Out No longer eligi ble based on patient's age to complete this topic Meningococcal Vaccine Aged Out No marquez qu[place] eligible based on patient's age to complete this topic RSV under 20 months Aged Out No longe r eligible based on patient's age to complete this topic Rotavirus Vaccines Aged Out No longer eligible based on patient's age to complete this topic Insurance [employer]
--- OUTSIDE RECORDS SUMMARY | 2025-01-24 14:57 | XMS_ITS | Patient Health Record ---
Author Organization [facility] Address [address] [place] [address] Care Team Providers Care Materials And Corrosion Engineer Name Role Phone Po Sunita GUILLERMO Primary Care Provider Serafin Ly Jr Unavailable [phone] Reason For Referral No Information Medications Medication SIG (Take, Route, Fr equency, Duration) Notes Start Date End Date Status Enalapril Maleate Ac tive Folic Acid Active Vitamin B 12 Active Loperamide HCl Activ e Aspir-81 Active Immunizations Vaccine Route Administration Date Status Comme nts Influenza Unknown 05/29/2020 Administered Social History Tobacco Use: Social History Observation Description Date Details (start date - stop date) Never Smoker NA - NA Tobacco Use/Smoking Question Answer Notes Patient is a nonsmoker Alcohol Screen Question Answer Notes Did you have a drink contain ing alcohol in the past year? Yes How often did you have a dri nk containing alcohol in the past year? 2 to 4 times a month (2 points) How often did you have 6 or more drinks on one occasion in the past year? Never (0 point) Points 2 Interpretation Negative Section Notes: ocassional jose enrique Plan Of Treatment No Information Insurance Providers Payer Name Payer Address Payer Phone Subscriber Number Group Number Insured Name Patient Relationship to Insured Coverage Start Date Coverage End Date [facility] [employer] [address] [place] [address] [phone] [id number] IDALIA RENA Self - patient is the insured Medical (General) History Medical History History ICD Code hypertension Surgical History Surgery Date(Month/Year)
== END 2025-01-24 12:25 | disposition home or self-care (01) ==
LOC: HO.LAB 12:24
PROVIDERS: PCP Internal Medicine; Visit Provider Internal Medicine
DX: R79.89 Other specified abnormal findings of blood chemistry (principal); R30.0 Dysuria; I10 Essential (primary) hypertension; E78.00 Pure hypercholesterolemia, unspecified; Z12.5 Encounter for screening for malignant neoplasm of prostate
CPT/HCPCS: 36415; 80053; 80061; 81003; 82306; 82607; 82728; 82746; 83036; 83540; 84153; 84439; 84443; 85025

== ENCOUNTER 2025-01-26 10:33 | Outpatient (AMB) | payer MEDICARE, SELFPAY ==
[2025-01-26 10:38] VITALS: BP 124/82; PULSE 88; TEMP 36.1; O2SAT 96; BMI 32.3
--- NOTE | 2025-01-26 10:38 | A.OFFVIS_ITS ---
Vital Signs 01/26/25 10:38 Height 6 ft Weight 238 lb BMI 32.3 BP 124/82 Blood Pressure Location Lt brachial Position Sitting Pulse 88 Pulse Source Pulse Oximeter Temp 96.9 F Temp Source Temporal Artery Scan Pulse Oximetry (%) 96 Oxygen Delivery Method Room Air Intake Visit Reasons: Hypertension Freight Adjuster Required: No Accompanied by: Self / Same As Patient Allergies No Known Allergies [No Known Allergies*] Allergy (Verified 01/26/25 10:39) Medication List - Last Reconciled 01/26/25 by Sunita Barker MD cholecalciferol (vitamin D3) 50 mcg PO DAILY cyanocobalamin (vitamin B-12) 1,000 mcg PO DAILY enalapril maleate 10 mg PO DAILY fluticasone propionate 50 mcg/actuation (Allergy Relief (fluticasone)) 1 spray intranasal DAILY folic acid 0.4 mg PO .2x a week loperamide (Anti-Diarrheal (loperamide)) 2 mg PO Q6H PRN PFSH Medical History (Updated 01/26/25 @ 11:26 by Sunita Barker MD) Screening for hyperlipidemia Screening for prostate cancer Cervical spinal stenosis Ganglioneuroma Superficial thrombophlebitis Peripheral vascular disease Osteoarthritis cervical spine Hypertension Obesity (BMI 30-39.9) Surgical History History of colonoscopy Varicose veins of both lower extremities History of tonsillectomy Family History Father Prostate cancer Basal cell carcinoma Social History Housing: House Alcohol intake: current Alcohol intake frequency: a few times a month Comment: 1-2 drinks a month Patient Tobacco Use Status: Never used Tobacco Tobacco use type: Cigarette e-Cigarette/Vaping Use: Never Used Second Hand Smoke Exposure: No service: No Current occupational status: employed Cognitive needs: No Hearing needs: No Vision needs: No Physical Exam Vital Signs: Last Vital Signs Temp 96.9 F 01/26/25 10:38 Pulse 88 01/26/25 10:38 BP 124/82 01/26/25 10:38 Pulse Ox 96 01/26/25 10:38 Oxygen Delivery Method Room Air 01/26/25 10:38 BMI result Body Mass Index 32.3 Const General: alert; No acute distress Eyes Conjunctivae: conjunctivae normal Resp Auscultation: clear to auscultation bilaterally Cardio Rate: regular rate Rhythm: regular rhythm GI Inspection: Yes normal to inspection Extrem General: Yes normal to inspection and No edema Assessment & Plan Assessment & Plan (1) Diaphragm paralysis: Comment: CT scan August 2024, hx of cervical spinal nerve stenosis Code(s): J98.6 - Disorders of diaphragm Category: Medical Plan: August 2024 cat scan showing high left diaphragm (2) High serum ferritin: Code(s): R79.89 - Other specified abnormal findings of blood chemistry Category: Medical Plan: Continued to have elevated ferritin but lower (3) Impaired glucose tolerance: Code(s): R73.02 - Impaired glucose tolerance (oral) Category: Medical Plan: Decrease the amount of carbohydrate intake, pasta, bread, rice and potatoes are all sugar and that is aside from all the sweet stuff, remember that fruits are good but they are Sweet also. (4) Hypertension: Code(s): I10 - Essential (primary) hypertension Category: Medical Qualifiers: Hypertension type: essential hypertension Qualified Code(s): I10 - Essential (primary) hypertension Plan: Continue with blood pressure medication. Decrease salt intake and exercise on enalapril 10 mg once a day (5) Obesity (BMI 30-39.9): Code(s): E66.9 - Obesity, unspecified Category: Medical Plan: Diet and exercise (6) Colon cancer screening: Code(s): Z12.11 - Encounter for screening for malignant neoplasm of colon Category: Medical Plan History of Present Illness The patient is a 64-year-old male presenting for a follow-up of essential hypertension, impaired glucose tolerance, irritable bowel syndrome, diaphragmatic paralysis, and obesity. Hypertension is controlled with enalapril, and blood glucose levels are mildly elevated but not indicative of diabetes. The patient experiences episodes of diarrhea associated with irritable bowel syndrome, managed using preemptive anti-diarrheal medication. A CT scan has shown an elevated left diaphragm due to diaphragmatic paralysis, but the patient reports no respiratory difficulty. Ferritin levels remain elevated but are improving gradually. Obesity is being managed through diet and exercise. The patient adheres to a vitamin regimen adjusted for folic acid dosing. Health Maintenance - Vaccinations: Up-to-date with tetanus, pneumonia, RSV, shingles, pending second part of COVID-19 booster. - Screening tests: Last colonoscopy was in 2014 with plan to schedule the next. - Lifestyle: Discussed dietary modifications to manage blood sugar levels. - Exercise: Advised on maintaining regular physical activity. - Monitoring: Regular follow-up of blood sugar and blood pressure levels. Social History - Obesity managed through diet and light exercise. - History of caregiving for a parent affecting physical health, including cervical spine issues. - Adjustments made to vitamin regimen after accidental overdose. Review of Systems - Gastrointestinal: Reports episodes of diarrhea associated with certain foods. - Nervous: Denies shortness of breath despite diagnosed diaphragmatic paralysis. Physical Exam Results - Labs: Normal blood count with no anemia; normal electrolytes and renal function; mildly elevated blood sugar at 101; normal hemoglobin A1c; elevated ferritin; normal liver function and cholesterol levels. - Tests and Diagnostics: October CT scan indicating elevated left diaphragm with subsegmental cicatrization atelectasis versus scarring. Plan Management of essential hypertension is maintained with enalapril 10 mg daily. Dietary modifications are suggested to address impaired glucose tolerance, and regular monitoring of blood glucose is advised. The patient will continue using anti-diarrheal medication for symptom management of irritable bowel syndrome. Efforts to address obesity through diet and exercise will continue. Elevated ferritin levels will be monitored without intervention unless complications occur. Addressing diaphragmatic paralysis is on hold due to a lack of symptoms. Plans include scheduling a colonoscopy and ensuring follow-up vaccinations. Patient was informed and verbally consented to the use of an ambient scribe for clinic note documentation during this visit. Discussion Notes I discussed with the patient the current management and monitoring plan for essential hypertension using enalapril, as well as strategies to address impaired glucose tolerance through dietary changes. We reviewed the patient's approach to managing irritable bowel syndrome symptoms with anti-diarrheal medications and the rationale behind continuing this approach over dietary limitations. The CT findings of diaphragmatic paralysis with an elevated diaphragm were reviewed, reassured by the absence of respiratory symptoms. We agreed that no intervention is needed at present. The patient's elevated ferritin continued to show improvement, and we discussed the potential side effects of iron chelation therapy, ruling it out as unnecessary for now. The need for a subsequent colonoscopy was outlined, with an agreement to schedule it. Vaccination status was reviewed, with only a pending COVID-19 booster remaining. Patient Instructions Orders: Orders Lipid Panel 6 Months E78.00 - Pure hypercholesterolemia, unspecified, R79.89 - Other specified abnormal findings of blood chemistry Hemoglobin A1c 6 Months R7. - Other specified abnormal findings of blood chemistry Ferritin 6 Months R7. - Other specified abnormal findings of blood chemistry Comprehensive Met. Panel 6 Months R7. - Other specified abnormal findings of blood chemistry Complete Blood Count Auto Diff 6 Months R7. - Other specified abnormal findings of blood chemistry Thyroid Stimulating Hormone 6 Months R7. - Other specified abnormal findings of blood chemistry Free T4 (Free Thyroxine) 6 Months R7. - Other specified abnormal findings of blood chemistry Vitamin B12 and Folate 6 Months R79. - Other specified abnormal findings of blood chemistry Prostate Specific Antigen Scr 6 Months R79. - Other specified abnormal findings of blood chemistry Referrals General Surgery Referral Z12.11 - Encounter for screening for malignant neoplasm of colon Coding Level of Care Code Est Pt Level 4 (30224) Complex EM visit Add On G2211 Diagnoses Diaphragm paralysis J98.6 High serum ferritin R79.89 Impaired glucose tolerance R73.02 Essential hypertension I10 Hypertension type: essential hypertension Obesity (BMI 30-39.9) E66.9 Colon cancer screening Z12.11
--- OUTSIDE RECORDS SUMMARY | 2025-01-26 12:05 | XMS_ITS | Encounter Summary ---
Author Organization [employer] Address [address] [facility] [address] [place] [address] Care Team Providers Care Managed Care Analyst Name Role Phone Unavailable Primary Care Provider Unavailabl e Encounter Details Date Type Department Care Team (Latest Contact Info) Description 12/13/2018 Abstract [facility] CONVERSIONS Dental, Provider, DDS Social History [...]
--- OUTSIDE RECORDS SUMMARY | 2025-01-26 12:05 | XMS_ITS | Clinical Summary ---
Author Organization [employer] Address [address] [facility] [address] [place] [address] Care Team Providers Care Abstract Searcher Name Role Phone Unavailable Primary Care Provider [...]
--- OUTSIDE RECORDS SUMMARY | 2025-01-26 12:05 | XMS_ITS | Patient Health Record ---
Author Organization [facility] Address [address] [place] [address] Care Team Providers Care Directory Operator Name Role Phone Po Sunita GUILLERMO Primary Care Provider Serafin Ly Jr Unavailable Reason For Referral No Information Medications Medication [...] Insured Coverage Start Date Coverage End Date [facility] [employer] [address] [place] [address] [id number] IDALIA RENA Self - patient is the insured Medical (General) History Medical History History ICD Code hypertension Surgical History Surgery Date(Month/Year)
--- OUTSIDE RECORDS SUMMARY | 2025-01-26 12:05 | XMS_ITS | Encounter Summary ---
Author Organization [employer] Address [address] [facility] [address] [place] [address] Care Team Providers Care Airport Security Screener Name Role Phone Unavailable Primary Care Provider Unavailabl e Encounter Details Date Type Department Care Team (Latest Contact Info) Description 12/14/2019 Abstract [facility] CONVERSIONS Dental, Provider, DDS Social History Tobacco [...]
== END 2025-01-26 11:31 | disposition home or self-care (01) ==
LOC: HO.HMCH 10:34
PROVIDERS: PCP Internal Medicine; Visit Provider Internal Medicine
DX: J98.6 Disorders of diaphragm (principal); R79.89 Other specified abnormal findings of blood chemistry; E66.9 Obesity, unspecified; Z68.32 Body mass index [BMI] 32.0-32.9, adult; R73.02 Impaired glucose tolerance (oral); I10 Essential (primary) hypertension; Z12.11 Encounter for screening for malignant neoplasm of colon

== ENCOUNTER → 2025-01-26 10:33 | Outpatient (BNVA) | payer MEDICARE, SELFPAY | PROVIDERS: PCP Internal Medicine; Visit Provider Internal Medicine | DX: I10 Essential (primary) hypertension (principal); J98.6 Disorders of diaphragm; R79.89 Other specified abnormal findings of blood chemistry; R73.02 Impaired glucose tolerance (oral); E66.9 Obesity, unspecified; E78.00 Pure hypercholesterolemia, unspecified; Z68.32 Body mass index [BMI] 32.0-32.9, adult | CPT/HCPCS: 99212 ==

== ENCOUNTER 2025-07-30 13:00 | Outpatient (REF) | payer MEDICARE, SELFPAY ==
[2025-07-30 13:14] LABS: MANUAL DIFF FLAG NO
[2025-07-30 13:51] LABS: Hematocrit 41.6 % (42.0-52.0); Hemoglobin 14.1 g/dl (14.0-18.0); Imm Gran Abs Auto 0.04 X10*3/uL (0.00-0.03); Imm Gran Pct Auto 0.5 % (0.0-0.4); Lymphocytes Absolute Auto 1.8 X10*3/uL (1.2-4.9); Mean Corpuscular HGB Conc 33.9 g/dl (31.0-36.0); Mean Corpuscular Hemoglobin 29.4 pg (27.0-33.0); Mean Corpuscular Volume 86.7 fL (80.0-98.0); NRBC Abs Auto 0.000 X10*3/uL (0.0-0.012); NRBC Pct Auto 0.0 /100WBC (0.0-0.2); Platelet Count 263 X10*3/uL (160-400); Red Blood Count 4.80 X10*6/uL (4.60-5.80); White Blood Count 8.1 X10*3/uL (4.8-10.8)
[2025-07-30 14:41] LABS: Alanine Aminotransferase 10 U/L (0-40); Albumin Level 4.4 g/dL (3.5-5.0); Alkaline Phosphatase 71 U/L (39-117); Anion Gap 12 (12-20); Aspartate Amino Transferase 19 U/L (5-37); Blood Urea Nitrogen 23 mg/dL (9-16); Calcium 9.7 mg/dL (8.4-10.2); Carbon Dioxide 27 mmol/L (22-29); Chloride 109 mmol/L (96-108); Cholesterol 181 mg/dL (<200); Estimated Glomerular Filt Rate > 60; HDL Cholesterol 56 mg/dL (>40); Potassium 4.6 mmol/L (3.3-5.1); Sodium 143 mmol/L (135-145); Total Protein 7.1 g/dL (6.5-8.0); Triglycerides 49 mg/dL (<150)
[2025-07-30 14:51] LABS: Ferritin 599 ng/mL (20-250); Free T4 (Free Thyroxine) 1.11 ng/dL (0.71-1.85); Thyroid Stimulating Hormone 2.17 uIU/mL (0.32-4.0)
[2025-07-30 14:58] LABS: Folate 13.7 ng/mL (> or = 4.0); Vitamin B12 918 pg/mL (200-900)
--- OUTSIDE RECORDS SUMMARY | 2025-07-30 15:21 | XMS_ITS | Clinical Summary ---
Author Organization [employer] Address [address] [facility] [address] [place] [address] Care Team Providers Care Ward Clerk Name Role Phone Unavailable Primary Care Provider [...] COVID-19 Vaccine ( - 2023-2 5 season) 2025 Influenza Vaccine (#1) 2025 RSV Patients and Pa tients Aged 60 [...] patient's age to complete this topic Meningococcal B Vaccine Aged Out No l onger eligible based on patient's age to complete [...]
--- OUTSIDE RECORDS SUMMARY | 2025-07-30 15:21 | XMS_ITS | Encounter Summary ---
Author Organization [employer] Address [address] [facility] [address] [place] [address] Care Team Providers Care Personnel Officer Name Role Phone Unavailable Primary Care Provider Unavailabl e Encounter Details Date Type Department Care Team (Latest Contact Info) Description 12/13/2018 Abstract [facility] CONVERSIONS Dental, Provider, DDS Social History [...]
--- OUTSIDE RECORDS SUMMARY | 2025-07-30 15:21 | XMS_ITS | Encounter Summary ---
Author Organization [employer] Address [address] [facility] [address] [place] [address] Care Team Providers Care Chain Carrier Name Role Phone Unavailable Primary Care Provider Unavailabl e Encounter Details Date Type Department Care Team (Latest Contact Info) Description 12/14/2019 Abstract [facility] CONVERSIONS Dental, Provider, DDS Social History [...]
--- OUTSIDE RECORDS SUMMARY | 2025-07-30 15:21 | XMS_ITS | Patient Health Record ---
Author Organization [facility] Address [address] [place] [address] Care Team Providers Care Vacuum Filter Operator Name Role Phone Po Sunita GUILLERMO [...] Insured Coverage Start Date Coverage End Date [facility] [employer] [address] [place] [address] [id number] IDALIA RENA Self - patient is the insured Medical (General) History Medical History History ICD Code hypertension Surgical History Surgery Date(Month/Year)
== END 2025-07-30 13:01 | disposition home or self-care (01) ==
LOC: HO.LAB 13:00
PROVIDERS: PCP Internal Medicine; Visit Provider Internal Medicine
DX: R79.89 Other specified abnormal findings of blood chemistry (principal); E78.00 Pure hypercholesterolemia, unspecified; Z12.5 Encounter for screening for malignant neoplasm of prostate
CPT/HCPCS: 36415; 80053; 80061; 82607; 82728; 82746; 83036; 84153; 84439; 84443; 85025

== ENCOUNTER 2025-08-06 09:59 | Outpatient (AMB) | payer MEDICARE, SELFPAY ==
[2025-08-06 10:04] VITALS: BP 130/76; PULSE 79; O2SAT 98; BMI 33.9
--- NOTE | 2025-08-06 10:04 | MHC.PC.OV ---
Vital Signs 08/06/25 10:04 Height 6 ft Weight 250 lb BMI 33.9 BP 130/76 Blood Pressure Location Lt brachial Position Sitting Pulse 79 Pulse Source Pulse Oximeter Pulse Oximetry (%) 98 Oxygen Delivery Method Room Air Intake Visit Reasons: Annual Exam - see comments Allergies No Known Allergies (No Known Allergies*) Allergy (Verified 08/06/25 10:04) Medication List - Last Reconciled 08/06/25 by Sunita Barker MD cholecalciferol (vitamin D3) 50 mcg PO DAILY cyanocobalamin (vitamin B-12) 1,000 mcg PO DAILY enalapril maleate 10 mg PO DAILY fluticasone propionate 50 mcg/actuation (Allergy Relief (fluticasone)) 1 spray intranasal DAILY folic acid 0.4 mg PO .2x a week loperamide (Anti-Diarrheal (loperamide)) 2 mg PO Q6H PRN Tobacco use date assessed: 08/06/25 Fall risk assessment: No Falls in past year Last assessed Fall Risk: 08/06/25 Dental Screening Dental Screen Date: 08/06/25 Did you have a dental visit in the last 12 months?: Yes Did you have a dental problem in the last 6 months where you did not have access to dental care?: No Was dental information given to patient?: Patient has dentist [facility] Medical History (Updated 08/06/25 @ 10:44 by Sunita Barker MD) Screening for hyperlipidemia Screening for prostate cancer Cervical spinal stenosis Ganglioneuroma Superficial thrombophlebitis Peripheral vascular disease Osteoarthritis cervical spine Hypertension Obesity (BMI 30-39.9) Surgical History History of colonoscopy Varicose veins of both lower extremities History of tonsillectomy Family History Father Prostate cancer Basal cell carcinoma Social History Housing: House Alcohol intake: current Alcohol intake frequency: a few times a month Comment: 1-2 drinks a month Patient Tobacco Use Status: Never used Tobacco Tobacco use type: Cigarette e-Cigarette/Vaping Use: Never Used Second Hand Smoke Exposure: No service: No Current occupational status: employed Cognitive needs: No Hearing needs: No Vision needs: No Questionnaire PHQ-9 Over the last 2 weeks, how often have you been bothered by any of the following problems? 1. Little interest or pleasure in doing things: not at all 2. Feeling down, depressed, or hopeless: not at all 3. Trouble falling or staying asleep, or sleeping too much: not at all 4. Feeling tired or having little energy: not at all 5. Poor appetite or overeating: not at all 6. Feeling bad about yourself - or that you are a failure or have let yourself or your family down: not at all 7. Trouble concentrating on things, such as reading the newspaper or watching television: not at all 8. Moving or speaking so slowly that other people could have noticed. Or the opposite - being so fidgety or restless that you have been moving around a lot more than usual: not at all 9. Thoughts that you would be better off or of hurting yourself in some way: not at all Total score: 0 Depression Screening Interpretation: Negative Depression Screening Done: Yes Source: Developed by Drs. Christos Lee, Manjula Bartlett, Magno Barrera and colleagues, with an educational johanne from [employer]. Thrive Questionnaire Date Thrive assessed: 01/26/25 I am a: Patient What is your living situation today?: I have a steady place to live Within the past 12 months, did the food you bought not last and you didn't have the money to get more?: Never true Within the past 12 months, did you worry whether your food would run out before you got money to buy more?: Never true Do you have trouble paying for medicines?: No Do you have trouble getting transportation to medical appointments?: No Do you have trouble paying your heating and electricity bill?: No Do you have trouble taking care of your child, family member or friend?: No Do you have trouble with day-to-day activities such as bathing, preparing meals, shopping, managing finances, etc.?: No Are you currently unemployed and looking for a job?: No Are you interested in more education?: No Please select the resources that you would like help with: None Currently or been in a relationship where the following occur: No concerns reported THRIVE Score: 0 AUDIT C Alcohol Use Questionnaire (AUDIT-C) 1. How often do you have a drink containing alcohol?: Monthly or less 2. How many drinks containing alcohol do you have on a typical day when you are drinking?: 1 or 2 3. How often do you have six or more drinks on one occasion?: Never Total Score: 1 MARYAM-7 AMB Questionnaire MARYAM-7 Date MARYAM - 7 assessed: 08/06/25 Feeling nervous, anxious, or on edge: 0 = Not at all Not being able to stop or control worryin = Not at all Worrying too much about different things: 0 = Not at all Trouble relaxin = Not at all Being so restless that it is hard to sit still: 0 = Not at all Becoming easily annoyed or irritable: 0 = Not at all Feeling afraid as if something awful might happen: 0 = Not at all Total MARYAM-7 score (0-4 normal; 5-9 mild; 10-14 moderate; 15-21 severe): 0 Source: Developed by Drs. Christos Lee, Manjula Bartlett, Magno Barrera and colleagues, with an educational johanne from [employer]. Review of Systems Const Denies poor appetite and Denies weakness Eyes Denies no additional complaints ENT Reports Normal hearing present, Denies dizziness, Denies nasal congestion, Denies tinnitus and Denies sore throat Card Denies chest pain, Denies syncope, Denies rapid heart rate and Denies dyspnea Resp Denies cough and Denies dyspnea GI Denies change in stool character, Reports constipation, Denies diarrhea, Denies nausea and Denies vomiting Denies dysuria and Denies urinary frequency Neuro Reports Normal hearing present, Denies confusion, Denies dizziness, Denies syncope and Denies weakness Psych Denies confusion Physical exam (Primary Care) Vital Signs: Last Vital Signs Pulse 79 08/06/25 10:04 BP 130/76 08/06/25 10:04 Pulse Ox 98 08/06/25 10:04 Oxygen Delivery Method Room Air 08/06/25 10:04 BMI result Body Mass Index 33.9 Tobacco/Smoking Status: Tobacco use Status Tobacco use date assessed 08/06/25 08/06/25 10:08 Patient Tobacco Use Status Never used Tobacco 08/06/25 10:08 Tobacco use type Cigarette 08/06/25 10:08 e-Cigarette/Vaping Use Never Used 08/06/25 10:08 PHQ-9: PHQ-9 Score PHQ-9: Total score 0 08/06/25 10:13 Depression Screening Interpretation: Negative Thrive Assessment: Date of Thrive Assessment Date Thrive assessed 01/26/25 08/06/25 10:08 Currently or been in a relationship where the following occur: No concerns reported Const General: No confusion Orientation/consciousness: No confusion HENMT Head: Yes normocephalic Ears: external ears normal and TM's normal bilaterally Face and sinus: Yes normal facial exam Mouth: moist mucous membranes Throat: Yes tonsils normal Eyes Conjunctivae: conjunctivae normal Pupils: Equal, round and reactive pupils present and Pupil accommodation reflex normal Direct Ophthalmoscopy: normal light reflex Neck Neck: No lymphadenopathy Thyroid: Thyroid normal Chest Chest palpation & inspection: normal inspection of the chest Resp Effort & Inspection: normal respiratory effort and no audible wheezes Auscultation: clear to auscultation bilaterally, no crackles, no wheezes and lung sounds not diminished Cardio Rate: regular rate Rhythm: regular rhythm Peripheral pulses: radial pulses present and dorsalis pedis present GI Other: large inguinal R hernia 4 by 5 inches mass R inguinal area, guaiac negative , prostate enlarged Palpation (GI): Palpable mass present Auscultation: normal bowel sounds and normoactive bowel sounds Skin General skin exam: no rashes or lesions noted Rashes: no rashes Neuro General: No confusion Cranial nerves: Yes Equal, round and reactive pupils present and Yes Normal hearing present Cognition (Neuro): normal cognition Gait exam (Neuro): Normal gait present Motor exam (neuro): 5/5 motor strength present throughout Deep tendon reflexes (DTR's): Right brachioradialis reflex intensity grade: 2+, Left brachioradialis reflex intensity grade: 2+, Right patellar reflex intensity grade: 2+ and Left patellar reflex intensity grade: 2+ Extrem General: No edema Coding Level of Care Code Est Pt Prev Care >65y(26205) Diagnoses Annual physical exam Z00.00 High serum ferritin R79.89 Obesity (BMI 30-39.9) E66.9 Impaired glucose tolerance R73.02 Essential hypertension I10 Hypertension type: essential hypertension 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 (2) High serum ferritin: Code(s): R79.89 - Other specified abnormal findings of blood chemistry Category: Medical Plan: Will continue to monitor (3) Obesity (BMI 30-39.9): Code(s): E66.9 - Obesity, unspecified Category: Medical Plan: Diet and exercise (4) Impaired glucose tolerance: Code(s): R73.02 - Impaired glucose tolerance (oral) Category: Medical Plan: Decrease the amount of carbohydrate intake, pasta, bread, rice and potatoes are all sugar and that is aside from all the sweet stuff, remember that fruits are good but they are Sweet also. (5) Hypertension: Code(s): I10 - Essential (primary) hypertension Category: Medical Qualifiers: Hypertension type: essential hypertension Qualified Code(s): I10 - Essential (primary) hypertension Plan: Continue with blood pressure medication. Decrease salt intake and exercise on enalapril 10 mg once a day (6) Diaphragm paralysis: Comment: CT scan August 2024, hx of cervical spinal nerve stenosis Code(s): J98.6 - Disorders of diaphragm Category: Medical Plan: Discussed further workup on the diaphragmatic paralysis. (7) Frequency of micturition: Code(s): R35.0 - Frequency of micturition Category: Medical (8) Right inguinal hernia: Code(s): K40.90 - Unilateral inguinal hernia, without obstruction or gangrene, not specified as recurrent Category: Medical (9) BPH (benign prostatic hyperplasia): Code(s): N40.0 - Benign prostatic hyperplasia without lower urinary tract symptoms Category: Medical Plan History of Present Illness The patient is a 64-year-old male presenting for a wellness visit and management of multiple chronic conditions. The patient has a history of hypertension, which is currently managed with enalapril 10 mg once daily. He monitors his blood pressure regularly and reports no recent episodes of elevated readings. The patient reports a history of irritable bowel syndrome, which he manages by avoiding fatty foods and using loperamide as needed. He experiences diarrhea primarily after consuming steak, which he mitigates by preemptively taking loperamide. The patient has impaired glucose tolerance, with fasting blood sugars noted to be slightly elevated at 101 mg/dL and 108 mg/dL in recent tests. He is advised to manage this condition through diet and exercise, although he reports limited physical activity. The patient has cervical spinal stenosis and peripheral vascular disease, both of which are chronic conditions that he manages with regular monitoring and lifestyle modifications. In October, the patient was diagnosed with diaphragmatic paralysis, specifically with left diaphragm elevation, which is being monitored. He reports occasional coughing after meals, which he attributes to postnasal drip rather than respiratory issues. The patient has a significant inguinal hernia, which was confirmed during the physical examination. He reports that the swelling reduces when lying down and increases when sitting or standing. A referral to a surgeon has been made for further evaluation and management. The patient also has prostatic enlargement, noted during the digital rectal examination, but reports no urinary symptoms such as dysuria or hematuria. Preventative care measures include a scheduled colonoscopy in November, as it has been ten years since the last procedure. Health Maintenance - Colonoscopy scheduled for November due to ten-year interval since last procedure - Regular monitoring of blood pressure and glucose levels - Advised to increase physical activity to manage impaired glucose tolerance Social History - Lives alone and eats out daily, typically consuming one meal per day - Drinks alcohol once or twice a month, typically one drink per occasion - Does not smoke and has never used tobacco products - Limited physical activity, primarily housecleaning and occasional yard work Review of Systems - General: Denies fever, chills, or weight loss - Respiratory: Reports occasional cough after meals, denies dyspnea or wheezing - Cardiovascular: Denies chest pain, palpitations, or syncope - Gastrointestinal: Reports diarrhea after consuming fatty foods, denies nausea or vomiting - Genitourinary: Reports nocturia 2-3 times per night, denies dysuria or hematuria - Neurological: Denies dizziness or headaches Physical Exam General: Cooperative, healthy appearing, comfortable, no acute distress and well developed Orientation: Patient oriented x3 Limitations: No limitations Head: Normal to inspection Ears: Hearing grossly normal bilaterally Nose: Normal external nose present Face and sinus: Normal facial exam Eyes: Appearance normal, both eyes and all related structures Neck: Normal visual inspection and Yes full ROM Respiratory: Normal respiratory effort and able to speak in complete sentences. Clear to auscultation bilaterally Cardiovascular: Regular rate and rhythm. Normal S1 and S2 GI: Normal to inspection. Soft to palpation and nontender Skin: No rashes or lesions noted Neuro: Patient oriented x3 Extremities: Normal to inspection, but patient reports knee pain Results - Labs: Fasting blood sugar 101 mg/dL and 108 mg/dL, ferritin elevated at 599 ng/mL - Imaging: CAT scan of the chest in August 2024 showing left diaphragm elevation Plan Patient was informed and verbally consented to the use of an ambient scribe for clinic note documentation during this visit. 1. Hypertension The patient's hypertension is managed with enalapril 10 mg once daily, and he is advised to continue monitoring his blood pressure regularly. 2. Irritable Bowel Syndrome The patient manages irritable bowel syndrome by avoiding fatty foods and using loperamide as needed, particularly before consuming steak. 3. Impaired Glucose Tolerance The patient is advised to manage impaired glucose tolerance through diet and exercise, with an emphasis on increasing physical activity. 4. Diaphragmatic Paralysis The patient's diaphragmatic paralysis is being monitored, with a follow-up on the elevated left diaphragm planned. 5. Inguinal Hernia A referral to a surgeon has been made for the management of the patient's significant inguinal hernia. 6. Prostatic Enlargement The patient has prostatic enlargement noted on examination, but reports no urinary symptoms requiring immediate intervention. Discussion Notes During the visit, we discussed the management of the patient's hypertension with enalapril and the importance of regular blood pressure monitoring. We also reviewed the patient's irritable bowel syndrome management strategy, emphasizing the avoidance of fatty foods and the use of loperamide as needed. The patient was advised to manage impaired glucose tolerance through diet and exercise, with a focus on increasing physical activity. We discussed the need for ongoing monitoring of the patient's diaphragmatic paralysis and the plan for a follow-up on the elevated left diaphragm. A referral to a surgeon was made for the patient's inguinal hernia, and we discussed the potential need for surgical intervention. The patient's prostatic enlargement was noted, but no immediate intervention was required as he reported no urinary symptoms. Patient Instructions - Continue taking enalapril 10 mg daily and monitor blood pressure regularly. - Avoid fatty foods and use loperamide as needed for irritable bowel syndrome. - Increase physical activity to help manage impaired glucose tolerance. - Follow up with the surgeon regarding the inguinal hernia. - Attend the scheduled colonoscopy in November. Orders: Orders UA CC w/rflx Micro + Cult Today I10 - Essential (primary) hypertension, R30.0 - Dysuria US bladder Today R35.0 - Frequency of micturition PFT pulmonary function test Today J98.6 - Disorders of diaphragm XR chest 2V Today J98.6 - Disorders of diaphragm Referrals General Surgery Referral K40.90 - Unilateral inguinal hernia, without obstruction or gangrene, not specified as recurrent
--- OUTSIDE RECORDS SUMMARY | 2025-08-06 10:08 | XMS_ITS | Encounter Summary ---
Author Organization [employer] Address [address] [facility] [address] [place] [address] Care Team Providers Care Merchandise Associate Name Role Phone Unavailable Primary Care Provider Unavailabl e Encounter Details Date Type Department Care Team (Latest Contact Info) Description 12/13/2018 Abstract [facility] CONVERSIONS Dental, Provider, DDS Social History [...]
--- OUTSIDE RECORDS SUMMARY | 2025-08-06 10:08 | XMS_ITS | Patient Health Record ---
Author Organization [facility] Address [address] [place] [address] Care Team Providers Care Wind Energy Mechanic Name Role Phone Sunita Barker MD Primary Care Provider Serafin Ly Jr Unavailable [phone] Reason For Referral No Information Medications Medication [...] Notes: ocassional jose enrique Plan Of Treatment Next Appt Details Provider Name:Serafin bentley Jr, 11/28/2025 10:20:00 AM, [address], [address], [place], [address], Insurance Providers Payer Name Payer Address Payer Phone Subscriber Number Group Number Insured Name Patient Relationship to Insured Coverage Start Date Coverage End Date [employer]UE [employer] [facility] [address] [place] [address] [id number] RENA FRIEDMAN Self - patient is the insured Medical (General) History Medical History History ICD Code hypertension Surgical History Surgery Date(Month/Year)
--- OUTSIDE RECORDS SUMMARY | 2025-08-06 10:08 | XMS_ITS | Clinical Summary ---
Author Organization [employer] Address [address] [facility] [address] [place] [address] Care Team Providers Care It Service Manager Name Role Phone Unavailable Primary Care Provider [...]
--- OUTSIDE RECORDS SUMMARY | 2025-08-06 10:08 | XMS_ITS | Encounter Summary ---
Author Organization [employer] Address [address] [facility] [address] [place] [address] Care Team Providers Care Veneer Repairer Machine Name Role Phone Unavailable Primary Care Provider Unavailabl e Encounter Details Date Type Department Care Team (Latest Contact Info) Description 12/14/2019 Abstract [facility] CONVERSIONS Dental, Provider, DDS Social History Tobacco [...]
== END 2025-08-06 10:59 | disposition home or self-care (01) ==
LOC: HO.HMCH 10:00
PROVIDERS: PCP Internal Medicine; Visit Provider Internal Medicine
DX: Z00.00 Encounter for general adult medical examination without abnormal findings (principal); R79.89 Other specified abnormal findings of blood chemistry; E66.9 Obesity, unspecified; Z68.33 Body mass index [BMI] 33.0-33.9, adult; R73.02 Impaired glucose tolerance (oral); I10 Essential (primary) hypertension; J98.6 Disorders of diaphragm; R35.0 Frequency of micturition; K40.90 Unilateral inguinal hernia, without obstruction or gangrene, not specified as recurrent; N40.0 Benign prostatic hyperplasia without lower urinary tract symptoms

== ENCOUNTER 2025-08-06 09:59 | Outpatient (REF) | payer MEDICARE, SELFPAY ==
--- NOTE | ~2025-08-06 | XR_ITS ---
CLINICAL HISTORY: J98.6 - Disorders of diaphragm 2 view chest x-ray Comparison: CT/VA/SR - CT CHEST W IV CON - 09/14/24 10:02 EST CR/VA/SR - XR CHEST 2 VIEWS - 07/28/24 13:50 EDT Findings: The lungs are clear. Unchanged elevation of the left hemidiaphragm. Fluoroscopic sniff test could be obtained for further evaluation if indicated. Heart size is normal. Degenerative changes of the spine. IMPRESSION: Unchanged elevation of the left hemidiaphragm. Fluoroscopic sniff test could be obtained for further evaluation if indicated. This document has been electronically signed by: Mayco Moss DO on 08/06/2025 12:20:24
[2025-08-06 11:49] LABS: Appearance Urine Clear; Glucose Urine UA Negative (Negative); PH 5.0 (5.0-9.0); Specific Gravity - Urine 1.020 (1.005-1.025)
== END 2025-08-06 10:00 | disposition home or self-care (01) ==
LOC: HO.XRAY 09:59
PROVIDERS: PCP Internal Medicine; Visit Provider Internal Medicine
DX: Z00.00 Encounter for general adult medical examination without abnormal findings (principal); I10 Essential (primary) hypertension; R30.0 Dysuria; J98.6 Disorders of diaphragm; R79.89 Other specified abnormal findings of blood chemistry; E66.9 Obesity, unspecified; R73.02 Impaired glucose tolerance (oral); R35.0 Frequency of micturition; K40.90 Unilateral inguinal hernia, without obstruction or gangrene, not specified as recurrent; N40.0 Benign prostatic hyperplasia without lower urinary tract symptoms; K58.9 Irritable bowel syndrome, unspecified
CPT/HCPCS: 71046; 81003; 96127; 99397

== ENCOUNTER → 2025-08-06 11:14 | Outpatient (BNV) | payer MEDICARE, SELFPAY | PROVIDERS: PCP Internal Medicine; Visit Provider Family Medicine | DX: J98.6 Disorders of diaphragm (principal) | CPT/HCPCS: 71046 ==

== ENCOUNTER 2025-09-27 12:33 | Outpatient (AMB) | payer MEDICARE, SELFPAY ==
[2025-09-27 12:53] VITALS: BP 124/66; PULSE 65; BMI 33.6
--- NOTE | 2025-09-27 12:53 | A.OFFVIS_ITS ---
Vital Signs 3 09/27/25 12:53 Height 6 ft Weight 248 lb BMI 33.6 BP 124/66 Blood Pressure Location Rt brachial Position Sitting Pulse 65 Intake Visit Reasons: Unilateral inguinal hernia Intake Note: Patient referred by PCP Dr. Barker for assessment of Rt inguinal hernia. Present for 2-3mo. Patient c/o: on and off bulge on Rt groin becomes bothersome. Denies pain. Pillow Agent Required: No Accompanied by: Self / Same As Patient Allergies No Known Allergies (No Known Allergies*) Allergy (Verified 09/27/25 12:59) Medication List - Last Reconciled 09/27/25 by Arturo Man MD cholecalciferol (vitamin D3) 50 mcg PO DAILY cyanocobalamin (vitamin B-12) 1,000 mcg PO DAILY enalapril maleate 10 mg PO DAILY fluticasone propionate 50 mcg/actuation (Allergy Relief (fluticasone)) 1 spray intranasal DAILY folic acid 0.4 mg PO .2x a week loperamide (Anti-Diarrheal (loperamide)) 2 mg PO Q6H PRN HPI Comments Details: Patient reports a several month history of been gradually increasing bulge in his right inguinal region. He denies any obstructive symptoms but reports that the bulge sometimes affects urination. He is able to manually reduce it. He denies any history of surgery or trauma to his abdomen or inguinal regions bilaterally. [facility] Medical History Screening for hyperlipidemia Screening for prostate cancer Cervical spinal stenosis Ganglioneuroma Superficial thrombophlebitis Peripheral vascular disease Osteoarthritis cervical spine Hypertension Obesity (BMI 30-39.9) Surgical History History of colonoscopy Varicose veins of both lower extremities History of tonsillectomy Family History Father Prostate cancer Basal cell carcinoma Social History Housing: House Alcohol intake: current Alcohol intake frequency: a few times a month Comment: 1-2 drinks a month Patient Tobacco Use Status: Never used Tobacco Tobacco use type: Cigarette e-Cigarette/Vaping Use: Never Used Second Hand Smoke Exposure: No service: No Current occupational status: employed Cognitive needs: No Hearing needs: No Vision needs: No Review of Systems Const All systems reviewed & are unremarkable except as noted in HPI and below Physical Exam Vital Signs: Last Vital Signs Pulse 65 09/27/25 12:53 BP 124/66 09/27/25 12:53 BMI result Body Mass Index 33.6 Const General: cooperative, healthy appearing, comfortable, no acute distress and well developed Orientation/consciousness: oriented to person, oriented to place and oriented to time HEENT Head: Yes normal to inspection, Yes normocephalic and Yes atraumatic Eyes Pupils: Equal, round and reactive pupils present EOM: EOMs intact bilaterally Neck Neck: Yes normal visual inspection Chest Chest palpation & inspection: normal inspection of the chest Resp Other: Decreased breath sounds on the left lung base. Effort & Inspection: normal respiratory effort and able to speak in complete sentences Cardio Rate: regular rate Rhythm: regular rhythm GI Inspection: Yes normal to inspection Abdomen image: 2 1. Right moderate reducible inguinal scrotal hernia. General: Yes no CVA tenderness Back/Spine/Pelvis Back: no CVA tenderness Thoracic/Lumbar Spine: thoracic and lumbar spine normal to inspection Skin General skin exam: no rashes or lesions noted Neuro General: oriented to person, oriented to place and oriented to time Cranial nerves: Yes Equal, round and reactive pupils present Assessment & Plan Assessment & Plan (1) Right inguinal hernia: Code(s): K40.90 - Unilateral inguinal hernia, without obstruction or gangrene, not specified as recurrent Category: Medical Plan: I told the patient his presentation was consistent with a right inguinal scrotal hernia. I offered him intervention in the form of laparoscopic, possible open right inguinal hernia repair with mesh. I reviewed with him in detail the risks that are involved with such an endeavor. These include but are not limited to the risk of bleeding, the risk of infection, the risk of damage to surrounding structures including damage to the spermatic cord resulting in testicular compromise, the risk of hernia recurrence, the risk of chronic pain, the risk of unsightly scarring and the risk that the surgery would not solve his current problems with discomfort and micturition issues were all reviewed with him in detail. He told me that he understood. He told me that he considered his options. He told me that he understood and accepted the risks of surgery and wished to proceed. Coding Level of Care Code New Pt Level 3 (56291) Diagnoses Right inguinal hernia K40.90 Time Spent (min) 30 Comment Patient visit, record review and coordination of care time
== END 2025-09-27 13:19 | disposition home or self-care (01) ==
LOC: HO.HGS 12:34
PROVIDERS: PCP Internal Medicine; Visit Provider Surgery
DX: K40.90 Unilateral inguinal hernia, without obstruction or gangrene, not specified as recurrent (principal)
CPT/HCPCS: 99203

== ENCOUNTER → 2025-09-27 12:33 | Outpatient (BNVA) | payer MEDICARE, SELFPAY | PROVIDERS: PCP Internal Medicine; Visit Provider Surgery | DX: K40.90 Unilateral inguinal hernia, without obstruction or gangrene, not specified as recurrent (principal) | CPT/HCPCS: 99202 ==

== ENCOUNTER 2025-10-17 12:13 | Outpatient (REF) | payer MEDICARE, SELFPAY ==
--- NOTE | ~2025-10-17 | US_ITS ---
EXAMINATION: US BLADDER HISTORY: R35.0 - Frequency of micturition COMPARISON: There are no prior studies available for comparison. FINDINGS: Sonographic examination of the urinary bladder was performed before and after voiding. Before voiding, the urinary bladder measured 6.5 x 3.0 x 7.4, for an estimated volume of 75.2 mL. After voiding, the urinary bladder measured 4.7 x 3.4 x 6.6, for an estimated volume of 54.8 mL. No intrinsic bladder abnormality is identified, although evaluation is limited by underdistention.. The prostate measures 6.1 x 6.9 x 5.5 cm, for an estimated volume of 122.6 mL. US/US bladder IMPRESSION: 1. Limited evaluation of the urinary bladder due to underdistention. 2. Post void bladder residual of 54.8 mL. 3. Prostate volume of 122.6 mL. Electronically signed by: Christos Schuler MD 10/17/2025 12:35 PM [facility]
--- OUTSIDE RECORDS SUMMARY | 2025-10-17 12:16 | XMS_ITS | Encounter Summary ---
Author Organization [employer] Address [address] [place] [address] Care Team Providers Care Artificial Cherry Maker Name Role Phone Unavailable Primary Care Provider Unavailabl e Encounter Details Date Type Department Care Team (Latest Contact Info) Description 12/14/2019 Abstract [facility] CONVERSIONS Dental, Provider, DDS Social History [...]
--- OUTSIDE RECORDS SUMMARY | 2025-10-17 12:16 | XMS_ITS | Encounter Summary ---
Author Organization [employer] Address [address] [place] [address] Care Team Providers Care Drier Helper Name Role Phone Unavailable Primary Care Provider Unavailabl e Encounter Details Date Type Department Care Team (Latest Contact Info) Description 12/13/2018 Abstract [facility] CONVERSIONS Dental, Provider, DDS Social [...]
--- OUTSIDE RECORDS SUMMARY | 2025-10-17 12:16 | XMS_ITS | Clinical Summary ---
Author Organization [employer] Address [address] [place] [address] Care Team Providers Care Bioinformatics Associate Name Role Phone Unavailable Primary Care [...] of 2) 2008 COVID-19 Vaccine ( - 2024-2 6 season) 2025 Influenza Vaccine (#1) 2025 RSV [...]
--- OUTSIDE RECORDS SUMMARY | 2025-10-17 12:16 | XMS_ITS | Patient Health Record ---
Author Organization [facility] Address [address] [place] [address] Care Team Providers Care Associate [employer] Name Role Phone Sunita Barker MD Primary [...] stop date) Never Smoker NA - NA Social History Drugs/Alcohol: Social Info Question Answer Notes Alcohol Screen Did you have a drink containing alcohol in the past year? Yes How often did you have a drink containing alcohol in the past year? 2 to 4 times a month (2 points) How often did you have 6 or more drinks on one occasion in the past year? Never (0 point) Points 2 Interpretation Negative Tobacco Use: Social Info Question Answer Notes Tobacco Use/Smoking Patient is a nonsmoker Additional Details Category Social Info Options Details Miscellaneous: Marital status: single Occupation: retired Section Notes: [employer] en[employer] Plan Of Treatment Next Appt Details Provider Name:Serafin bentley Jr, 11/28/2025 10:20:00 AM, [address], [address], [place], [address], Insurance Providers Payer Name Payer Address Payer Phone Subscriber Number Group Number Insured Name Patient Relationship to Insured Coverage Start Date Coverage End Date [facility] [address] [place] [address] [id number] RENA FRIEDMAN Self - patient is the insured Medical (General) History Medical History History ICD Code hypertension Surgical History Surgery Date(Month/Year)
== END 2025-10-17 12:14 | disposition home or self-care (01) ==
LOC: HO.US 12:13
PROVIDERS: PCP Internal Medicine; Visit Provider Internal Medicine
DX: R35.0 Frequency of micturition (principal)
CPT/HCPCS: 76857

== ENCOUNTER → 2025-10-17 12:15 | Outpatient (BNV) | payer MEDICARE, SELFPAY | PROVIDERS: PCP Internal Medicine; Visit Provider Radiology Diagnostic Radiology | DX: R35.0 Frequency of micturition (principal) | CPT/HCPCS: 76857 ==